=== PATIENT | male | born 1945 | race Caucasian/White ===

== ENCOUNTER 2017-02-26 11:58 | Inpatient (IN) | payer OTHER ==
[2017-02-26] MEDS ORDERED: NS 1,000 ML IV ONE (12:09)
[2017-02-26] MEDS ORDERED: FAMOTIDINE 20 MG TAB PO ONE (12:09)
[2017-02-26] MEDS ORDERED: DIAZEPAM 5 MG TAB PO ONE (12:09)
[2017-02-26] MEDS ORDERED: diphenhydrAMINE 25 MG CAP PO ONE ×2 (12:09→12:35)
[2017-02-26] MEDS ORDERED: ASPIRIN EC 325 MG TAB PO ONE ×2 (12:09→12:35)
--- NOTE | 2017-02-26 12:31 | CPEKG ---
Heart Rate: 52 RR Interval: 1154 P-R Interval: 180 QRSD Interval: 84 QT Interval: 444 QTC Interval: 413 P [place]: -8 QRS [place]: 22 T Wave [place]: 74 EKG Severity - NORMAL ECG - EKG Impression: SINUS RHYTHM Electronically Signed By: Bret Swann 26-Feb-2017 14:13:36
[2017-02-26] MEDS ORDERED: DIAZEPAM 5 MG TAB ONE (12:35)
[2017-02-26] MEDS ORDERED: LIDOCAINE 1% 300 MG/30 ML SDV ONE (12:57)
[2017-02-26 12:58] LABS: % IMMATURE GRANULYOCYTES 0.4 % (0.0-1.1); ABSOLUTE IMMATURE GRANULOCYTES 0.02 10^3/uL (0.00-0.10); ADD DIFF? NO; ADD MORPH? NO; ADD SCAN? NO; ATYPICAL LYMPHOCYTE FLAG 0 (0-99); FRAGMENT RBC FLAG 0 (0-99); HEMATOCRIT 48.4 % (40.0-51.0); HEMOGLOBIN 16.6 g/dL (13.7-17.5); LEFT SHIFT FLG 0 (0-99); LIPEMIA HEMOLYSIS FLAG 90 (0-99); MEAN CELL HEMOGLOBIN 30.5 pg (27.9-34.1); MEAN CELL HEMOGLOBIN CONCENTR. 34.3 g/dL (32.4-36.7); MEAN CELL VOLUME 88.8 fL (81.5-99.8); MEAN PLATELET VOLUME 10.2 fL (8.7-11.7); PLATELET CLUMPS FLAG 0 (0-99); PLATELET COUNT 142 10^3/uL (150-400); RED BLOOD CELL COUNT 5.45 10^6/uL (4.40-6.38); RED CELL DISTRIBUTION WIDTH 13.1 % (11.5-15.2)
[2017-02-26] MEDS ORDERED: HEPARIN 10,000 UNIT/10 ML MDV ONE (12:58)
[2017-02-26] MEDS ORDERED: fentaNYL 100 MCG/2 ML INJ ONE (12:58)
[2017-02-26] MEDS ORDERED: IOPAMIDOL (ISOVUE-370) 150 ML BTL IV ONE (12:58)
[2017-02-26] MEDS ORDERED: MIDAZOLAM 2 MG/2 ML VIAL ONE (12:58)
[2017-02-26] MEDS ORDERED: VERAPAMIL 5 MG/2 ML VIAL ONE (12:58)
[2017-02-26 13:14] LABS: INR 1.07 (0.83-1.16); PROTIME(PATIENT) 13.8 SEC (12.0-15.0)
[2017-02-26 13:15] LABS: ANION GAP 12 mEq/L (8-16); CALCIUM 10.4 mg/dL (8.5-10.4); CARBON DIOXIDE 19 mEq/l (22-31); CHLORIDE 111 mEq/L (97-110); CHOLESTEROL 209 mg/dL (140-220); CREATININE 1.2 mg/dL (0.7-1.3); GLOMERULAR FILTRATION RATE 60; GLUCOSE 87 mg/dL (70-100); HIGH DENSITY LIPOPROTEIN 38 mg/dL (40-65); LDL/HDL RATIO 4.11 RATIO (1.00-3.64); LOW DENSITY LIPOPROTEIN 156 mg/dL (80-100); NON-HIGH DENSITY LIPOPROTEIN 171 mg/dL (90-129); POTASSIUM 4.2 mEq/L (3.5-5.2); SODIUM 142 mEq/L (134-144); TRIGLYCERIDE 77 mg/dL (40-150); VERY LOW DENSITY LIPOPROTEINS 15 mg/dL (8-25)
--- NOTE | 2017-02-26 14:50 | GHP ---
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 He exerci ses a few times a week using an elliptical aed trainer. He reports that beginning in the middle of last week he began to experience episodes of discomfort while using his elliptical. Pain would start in the right side of his jaw on radiate in to the right upper arm and chest. It intensified if he con tinued exercise and was relieved fairly quickly with rest. He then began to notice that almost any physical exertion would precipitate similar symptoms. He was seen by his primary care provider. Ne s physical examination was unremarkable and his ECG demonstrated minor nonspecific abnormalities. Michell calderon was referred to our office for an exercise stress test with nuclear imaging. That study was perfo rmed earlier today. He exercised 7 minutes 45 seconds of the Hector protocol. He experienced his us ual discomfort and demonstrated inferolateral ST-segment depression up to 2 mm. The nuclear profusi on images have not been formally interpreted, but Dr. Pabon reviewed the images and called me to re lay that he has a large anterior reversible defect. His cardiac risk profile is notable for the abs ence of high blood pressure, type 2 diabetes, or a significant smoking history. He does not know ct s lipid status. His mother had atherosclerotic vascular disease late in life. PAST MEDICAL HISTORY: He has a history of pneumonia. No major ongoing medical issues. He does use hearing aids. PAST SURGICAL HISTORY: Includes tonsillectomy, surgery for a retinal detachment, and cataract surge ry. FAMILY HISTORY: Atherosclerosis in his mother in late age, as mentioned above. Otherwise noncontri butory. MEDICATIONS: His home medications consist of fluoxetine 40 mg and 20 mg on alternate days, p.r.n. o meprazole, vitamin D supplement, and fish oil. ALLERGIES: No known drug allergies. SOCIAL HISTORY: He is . He has 2 adult offspring. 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 His only tobacco exposure was occasional pipe smoking while in college. Alcohol consumption is minimal. REVIEW OF SYSTEMS: Apart from the chest discomfort that prompted this hospital encounter, a 10-poin t review was negative. PHYSICAL EXAMINATION: VITAL SIGNS: Heart rate in the 70s with sinus rhythm on the monitor. Blood pressure 130s over 70s. GENERAL: A well-developed, well-nourished male, in no acute distress. He is alert and oriented x3. HEAD AND NECK: No scleral icterus. Mucous membranes moist. Carotid pul ses 2+ without bruits. There is no JVD. CHEST: Lung ivey clear to auscultation. CARDIAC: Regu lar rate and rhythm with a normal S1 and S2. There is no murmur or gallop. ABDOMEN: Soft, nontend er, nondistended with normal bowel sounds. EXTREMITIES: 2+ pulses and no peripheral edema. An All en test on the right wrist was normal. LABORATORY STUDIES: Pending at the time of this dictation. IMPRESSION: This is a 71-year-old male who presents with new-onset exertional discomfort consistent with angina. He has a markedly abnormal nuclear stress test demonstrating an anterior reversible d efect in conjunction with ST-segment depression. PLAN: The patient is scheduled for diagnostic cardiac catheterization today. Further diagnostic an d therapeutic decisions await the outcome of that study. /[id number]/MODL
[2017-02-26] MEDS ORDERED: ONDANSETRON 4 MG/2 ML VIAL IVP PRN (15:38)
[2017-02-26] MEDS ORDERED: ONDANSETRON DISINTEGRATING 4 MG TAB PO PRN (15:38)
[2017-02-26] MEDS ORDERED: HYDROCODONE/APAP 5/325 TAB PO PRN (15:38)
[2017-02-26] MEDS ORDERED: NITROGLYCERIN 0.4 MG BTL SL PRN (15:38)
[2017-02-26] MEDS ORDERED: ATROPINE SULFATE 1 MG/10 ML SYR IVP PRN (15:38)
[2017-02-26] MEDS ORDERED: NS 1,000 ML IV SCH (15:45)
--- NOTE | 2017-02-26 15:50 | PDDXCAT ---
Diagnostic Cath Note - . Date: 02/26/17 Drilling Inspector: Demetrius Indication: other (CCS class III angina and nuclear ETT positive for chest pain , ST segment depression, and a large anterior reversible perfusion defect.) - Procedure Access: right groin (Start of procedure from the right wrist but severe innominate tortuosity precluded manipulation of catheters.) - Materials Left Heart Cath size: 6F Left Heart Cath materials: standard multipack (JL4, JR4, pigtail) - Findings-Left Heart Catheterization LM: Normal. LAD: Severe disease in the mid-LAD up to 70-80%. Principle diagonal 100% proximal with meyx-[id number] collaterals. LCX: Mild irregularities. RCA: Mild to moderate irregularities. Ramus: Ostial 50-60%. LVEF: 50% Wall motion: Mid-anterior hypokinesis. Complications: None Estimated blood loss: <50ml Closure method: Angioseal Assessment: 1) Low normal LVEF. 2) CAD as described above. Plan: Will place the patient on PCU overnight for observation and to initiate medical therapy to consist of aspirin, beta monie, and statin. Will consult CT surgery to consider bypass grafting of his complex LAD-diagonal bifurcation disease and possibly ramus intermedius.
--- NOTE | 2017-02-26 17:40 | ECHO ---
[id number] + + [id number] : : [place] [address] : : [phone] + Adult Echocardiographic Report + ----+ :Name: BASSAM العراقيRichard Date: 02/26/2017 04:12 PM : : Hospital Admission Number: [id number] Location: [facility]: :: 1945 Gender: Male : :Age: 71 yrs Race: WH : :Reason For Study: CAD : + ----+ MMode/2D Measurements \T\ Calculations IVSd: 0.52 cm LVIDd: 5.3 cm FS: 47.3 % Ao root diam: LVPWd: 0.72 cm LVIDs: 2.8 cm EDV(Teich): 3.6 cm 133.8 ml LA dimension: ESV(Teich): 3.7 cm 29.0 ml EF(Teich): 78.3 % LVLd ap4: 8.5 cm SV(MOD-sp4): EDV(MOD-sp4): 40.0 ml 69.0 ml LVLs ap4: 7.4 cm ESV(MOD-sp4): 29.0 ml EF(MOD-sp4): 58.0 % Normal Measurement Values: + + :LVIDd (3.5-5.7cm) IVSd (0.6-1.1cm) LVPWd (0.6-1.1cm) Aortic Root (2.0-3.7cm)Left Atrium (1.5-4.0cm): :LV Vol(d) (76-115ml) LV Vol(s) (29-48ml) Ejec Fraction (50-65%)PV Ricki (0.6- 1.2m/s) TV Ricki (0.4-1.0m/s) : :MV E Ricki (0.8-1.0m/s)MV A Ricki (0.3-1.0m/s)LVOT Ricki (0.7-1.2m/s) Asc Ao Ricki ( 0.9-1.8m/s) : + + Doppler Measurements \T\ Calculations MV E max ricki: 61.2 cm/sec Ao V2 max: 93.7 cm/sec MV A max ricki: 58.2 cm/sec Ao max P.5 mmHg MV E/A: 1.1 Left Ventricle The left ventricle is normal in size. There is normal left ventricular wall thickness. EF estimate is 50-55%. LV apical septal/anterior kim appear hypo/akinetic. Right Ventricle The right ventricle is normal in size and function. Atria The left atrial size is normal. Right atrial size is normal. The interatrial septum is intact with no evidence for an atrial septal defect. Mitral Valve The mitral valve is normal in structure and function. There is no evidence of mitral valve prolapse. There is no mitral valve stenosis. Tricuspid Valve Normal tricuspid valve. There is trace tricuspid regurgitation. Aortic Valve The aortic valve is trileaflet. The aortic valve opens well. There is no aortic stenosis. Trace to mild aortic regurgitation. Pulmonic Valve The pulmonic valve is not well visualized. There is no pulmonic valvular regurgitation. Great Vessels The aortic root is normal size. Pericardium/Pleural There is no pericardial effusion. Conclusion A complete two-dimensional transthoracic echocardiogram was performed (2D, M-mode, Doppler and color flow Doppler). EF estimate is 50-55%. LV apical septal/anterior kim appear hypo/akinetic. There is trace tricuspid regurgitation. Trace to mild aortic regurgitation. Final Reading Physician: Shin Wilkerson signed on 02/26/2017 05:38 PM Ordering Physician: Hernan Romo Performed By: Nathaly Palacios RDCS
[2017-02-26] MEDS: METOPROLOL TARTRATE 25 MG TAB PO SCH (21:28)
[2017-02-26] MEDS: OMEGA-3 FATTY ACIDS 1,000 MG CAP PO SCH (21:28)
[2017-02-26] MEDS ORDERED: LIDOCAINE 2% JELLY 20 ML (UROJECT) ONE ×2 (22:02→23:59)
[2017-02-27] MEDS ORDERED: OPIUM/BELLADONNA ALKALO SUPP PR PRN ×2 (01:42→02:04)
--- NOTE | 2017-02-27 07:38 | GCON ---
[f rep st] CONSULTATION DATE OF CONSULTATION: 02/27/2017 REFERRING PHYSICIAN: Jimmy Corley MD REASON FOR CONSULTATION: Urinary retention. HISTORY OF PRESENT ILLNESS: Dr. Corley has asked me to evaluate this 71-year-old male, who underw ent cardiac catheterization earlier today and has been unable to urinate. Bladder scans have shown greater than 600 mL, and attempts to pass a catheter have been unsuccessful. The patient has a prio r history of transurethral resection of the prostate with history of bladder neck contraction, treat ed in 2012. He also has history of hemorrhagic prostatitis. He is being primarily followed at [facility] by the [facility] team. He had been having no voiding problems prior to [facility] o ever the past several years. PAST MEDICAL HISTORY: Positive for hypertension. SOCIAL HISTORY: He has had cataract surgery. ALLERGIES: He has no known drug allergies. PHYSICAL EXAMINATION: GENERAL: Patient is uncomfortable with a distended abdomen. : Attempts t o pass a coude catheter were unsuccessful. PROCEDURE: Cystoscopy was then carried out. Patient has a tortuous urethra. The scope was passed into the bladder, but multiple attempts to pass catheters over guidewire were unsuccessful. Ultimat sara, a superstiff wire was passed, a 5-Surinamese open-end ureteral catheter passed over this, and a 16- Surinamese Councill catheter passed over that. Greater than 1 L of bloody urine was drained. IMPRESSION: Urinary retention with no obvious anatomic area for obstruction, but a very tortuous ur ethra. RECOMMENDATION: I would leave the Srivastava catheter in through his upcoming open-heart surgery due to the difficult catheterization. He can either followup with [facility], or with me, if he continues to have problems. /[id number]/MODL
--- NOTE | 2017-02-27 08:03 | PDCARPN ---
Cardiology Progress Note Chief Complaint: CC: admit with jaw pain with exertion Assessment/Plan: Assessment: 1. New onset exertional jaw pain 2. 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 Romo. He is feeling well this AM. He had issues with urinary retention post cath and has spencer in place that required urology consult with Dr Estes. Dr. Rai is stable. No events on tele. Reviewed/Discussed With: multidisciplinary team (Reviewed with Nursing staff and Dr Sheth) Time Spent With Patient: 15 min Objective: Vital Signs (8 Hrs) Temp Pulse Resp BP Pulse Ox 02/27/17 05:54 36.6 C 64 17 108/60 93 Intake/Output (24 Hrs) 02/26/17 02/27/17 02/28/17 05:59 05:59 05:59 Intake Total 400 Output Total 1250 Balance -850 Intake: Oral (ml) 400 Output: Urine (ml) 1250 Catheter 1250 Other: Weight 84 kg Intake Quantity Yes Sufficient Result Diagrams: 03/06/17 07:55 03/06/17 05:15 Telemetry: NSR - Physical Exam Constitutional: WDWN Eyes: PERRL Ears, Nose, Mouth, Throat: moist mucous membranes Cardiovascular: regular rate and rhythm, no murmurs, no rubs, no gallops Respiratory: clear to auscultate bilat Neurologic: AAOx3 Psychiatric: cooperative ICD10 Worksheet Patient Problems: Problems Problem Status Onset Acute blood loss anemia Acute CAD in [place] artery Acute Chronic Disease Mgmt/Transitional Care Acute S/P CABG x 3 Acute ~03/01/17
[2017-02-27] MEDS: ASPIRIN 81 MG CHEWABLE TAB PO SCH (09:02)
[2017-02-27] MEDS: OMEGA-3 FATTY ACIDS 1,000 MG CAP PO SCH ×2 (09:02→21:12)
[2017-02-27] MEDS: CHOLECALCIFEROL VIT D3 1,000 UNITS TAB PO SCH (09:02)
[2017-02-27] MEDS: FLUoxetine 20 MG CAP PO SCH (09:02)
[2017-02-27] MEDS: ATORVASTATIN CALCIUM 40 MG TAB PO SCH (09:02)
[2017-02-27] MEDS: METOPROLOL TARTRATE 25 MG TAB PO SCH ×2 (09:52→21:13)
[2017-02-28] MEDS: CHOLECALCIFEROL VIT D3 1,000 UNITS TAB PO SCH (08:53)
[2017-02-28] MEDS: ASPIRIN 81 MG CHEWABLE TAB PO SCH (08:53)
[2017-02-28] MEDS: ATORVASTATIN CALCIUM 40 MG TAB PO SCH (08:54)
[2017-02-28] MEDS: OMEGA-3 FATTY ACIDS 1,000 MG CAP PO SCH ×2 (08:54→21:02)
[2017-02-28] MEDS: FLUoxetine 20 MG CAP PO SCH (08:59)
[2017-02-28] MEDS: METOPROLOL TARTRATE 25 MG TAB PO SCH ×2 (08:59→21:02)
[2017-02-28] MEDS ORDERED: MUPIROCIN 2% 22 GM OINT NS ONE (10:10)
--- NOTE | 2017-02-28 10:14 | PDCARPN ---
Cardiology Progress Note Chief Complaint: Mr. Rai is feeling well today. Assessment/Plan: Assessment: 1. New onset exertional jaw pain 2. CAD Plan: -Plan for CABG tomorrow with Dr. Sheth -Srivastava catheter secondary to urinary retention -continue current cardiac medications 02/27/17 07:59 02/28/17 10:13 Subjective: Mr. Rai is feeling well. No chest pain or sob. Hemodynamicaly stable. No events on Tele. Reviewed/Discussed With: multidisciplinary team (Discussed with Nursing and CT surgery staff ) Objective: Vital Signs (8 Hrs) Temp Pulse Resp BP Pulse Ox 02/28/17 08:04 36.3 C 57 L 16 126/76 H 95 02/28/17 05:11 36.5 C 56 L 16 107/68 95 Intake/Output (24 Hrs) 02/27/17 02/28/17 03/01/17 05:59 05:59 05:59 Intake Total 400 850 Output Total 1250 3180 Balance -850 -2330 Intake: Oral (ml) 400 850 Output: Urine (ml) 1250 3180 Catheter 1250 3180 Other: Weight 84 kg Intake Quantity Yes Yes Sufficient Result Diagrams: 03/06/17 07:55 03/06/17 05:15 - Physical Exam Neurologic: AAOx3, CN II-XII grossly intact Psychiatric: cooperative, interactive ICD10 Worksheet Patient Problems: Problems Problem Status Onset Acute blood loss anemia Acute CAD in [place] artery Acute Chronic Disease Mgmt/Transitional Care Acute S/P CABG x 3 Acute ~03/01/17
[2017-02-28] MEDS: MUPIROCIN 2% 22 GM OINT NS SCH ×2 (11:04→21:02)
[2017-02-28] MEDS ORDERED: CHLORHEXIDINE GLUC HIBICLENS 118 ML BTL TP SCH (21:00)
[2017-03-01 01:16] LABS: HEMOGLOBIN A1C 5.4 % (4.0-6.0)
[2017-03-01] MEDS ORDERED: AMINOCAPROIC ACID 5 GM/20 ML VIAL IV ONE (06:00)
[2017-03-01] MEDS ORDERED: MANNITOL 25% 12.5 GM/50 ML VIAL IV ONE (06:00)
[2017-03-01] MEDS ORDERED: ceFAZolin 2 GM/DEXTROSE 100 ML IV ONE (06:00)
[2017-03-01] MEDS ORDERED: niCARdipine/NACL 200 ML IV SCH (06:00)
[2017-03-01] MEDS ORDERED: NOREPINEPHRINE BITARTRATE 16 MG in NS 250 ML IV ONE (06:00)
[2017-03-01] MEDS ORDERED: INSULIN REGULAR HUMAN 100 UNIT in NS 100 ML IV ONE (06:00)
[2017-03-01] MEDS ORDERED: CITRATE DEXTROSE SOLN 500 ML BAG MISC ONE (06:00)
[2017-03-01] MEDS ORDERED: SODIUM BICARBONATE 20 MEQ, LIDOCAINE 1% 10 ML in NORMOSOL-R 1,000 ML MISC ONE (06:00)
[2017-03-01] MEDS ORDERED: PHENYLEPHRINE HCL 50 MG in NS 250 ML IV ONE (06:00)
[2017-03-01] MEDS ORDERED: VERAPAMIL 5 MG, NITROGLYCERIN 2.5 MG, HEPARIN 500 UNIT, SODIUM BICARBONATE 0.2 MEQ in L... MISC ONE (06:00)
[2017-03-01] MEDS: MUPIROCIN 2% 22 GM OINT NS SCH ×2 (07:50→21:47)
[2017-03-01] MEDS: ATORVASTATIN CALCIUM 40 MG TAB PO SCH (08:01)
[2017-03-01] MEDS: ASPIRIN 81 MG CHEWABLE TAB PO SCH (08:01)
[2017-03-01] MEDS: OMEGA-3 FATTY ACIDS 1,000 MG CAP PO SCH (08:02)
[2017-03-01] MEDS: FLUoxetine 20 MG CAP PO SCH (08:02)
[2017-03-01] MEDS: CHOLECALCIFEROL VIT D3 1,000 UNITS TAB PO SCH (08:02)
[2017-03-01] MEDS: METOPROLOL TARTRATE 25 MG TAB PO SCH (08:02)
[2017-03-01] MEDS ORDERED: ALBUMIN 5% 250 ML BOTTLE IV ONE ×2 (08:08→17:43)
[2017-03-01] MEDS ORDERED: PROTAMINE SULFATE 50 MG/5 ML VIAL IVP ONE (08:08)
[2017-03-01] MEDS ORDERED: AMIODARONE HCL 150 MG/3 ML VIAL ONE (08:09)
[2017-03-01] MEDS ORDERED: NA BICARBONATE 50 MEQ/50 ML VIAL ONE (08:09)
[2017-03-01] MEDS ORDERED: CITRATE DEXTROSE SOLN 500 ML BAG ONE (08:09)
[2017-03-01] MEDS ORDERED: CALCIUM CHLORIDE 1 GM/10 ML INJ ONE (08:09)
[2017-03-01] MEDS ORDERED: DOPamine/DEXTROSE/250 ML BAG IV ONE (08:09)
[2017-03-01] MEDS ORDERED: AMINOCAPROIC ACID 5 GM/20 ML VIAL ONE (08:09)
[2017-03-01] MEDS ORDERED: niCARdipine/NACL/200 ML BAG IV ONE (08:09)
[2017-03-01] MEDS ORDERED: LIDOCAINE 2% 100 MG/5 ML SYR ONE ×2 (08:09→13:08)
[2017-03-01] MEDS ORDERED: POTASSIUM Cl (KCl) 20 MEQ/50 ML BAG IV ONE (08:09)
[2017-03-01] MEDS ORDERED: MILRINONE/DEXTROSE/100 ML BAG IV ONE (08:09)
[2017-03-01] MEDS ORDERED: HEPARIN 10,000 UNIT/10 ML MDV ONE (08:10)
[2017-03-01] MEDS ORDERED: methylPREDNISolone SOD SUCC 1 GM/8 ML VIAL ONE (08:10)
[2017-03-01] MEDS ORDERED: ADENOSINE 6 MG/2 ML VIAL ONE (08:10)
[2017-03-01] MEDS ORDERED: ceFAZolin 1 GM VIAL ONE ×2 (08:10→16:11)
[2017-03-01] MEDS ORDERED: MAGNESIUM SULFATE 1 GM/2 ML VIAL ONE (08:10)
[2017-03-01] MEDS ORDERED: LR 1,000 ML IV ONE (11:10)
[2017-03-01] MEDS ORDERED: CEFAZOLIN 2 GM/DEXTROSE/100 ML BAG IV ONE (11:22)
[2017-03-01] MEDS ORDERED: DEXMEDETOMIDINE HCL 400 MCG in NS 100 ML IV SCH (12:30)
[2017-03-01] MEDS ORDERED: PAPAVERINE HCL 60 MG/2 ML SDV ONE (12:36)
[2017-03-01] MEDS ORDERED: VERAPAMIL 5 MG/2 ML VIAL ONE (12:36)
[2017-03-01] MEDS ORDERED: MINERAL OIL 10 ML VIAL ONE (12:36)
--- NOTE | 2017-03-01 12:37 | PDHPUP ---
History & Physical Update H&P update statement: This history and physical update is based on an assessment of the patient which was completed after admission or registration (within 24 hours), but prior to the surgery/procedure. H&P changes: Urology consult, cysto and spencer for urinary retention d/t tortuous urethra
[2017-03-01] MEDS ORDERED: SCOPOLAMINE HYDROBROMIDE 1.5 MG PATCH TD ONE (12:40)
[2017-03-01] MEDS ORDERED: MIDAZOLAM 2 MG/2 ML VIAL IVP ONE (12:40)
--- NOTE | 2017-03-01 12:40 | PDANEPAE ---
ANE History of Present Illness 71 yo for cabgx2, nl LV ANE Past Medical History - Cardiovascular History Hx Hypertension: No Hx Arrhythmias: No Hx Chest Pain: No Hx Coronary Artery / Peripheral Vascular Disease: Yes Hx CHF / Valvular Disease: No Hx Palpitations: No - Pulmonary History Hx COPD: No Hx Asthma/Reactive Airway Disease: No Hx Recent Upper Respiratory Infection: No Hx Oxygen in Use at Home: No Hx Sleep Apnea: No Sleep Apnea Screening Result - Last Documented: Positive - Endocrine History Hx Diabetes: No - Chronic Pain History Chronic Pain: No ANE Review of Systems Review of systems is: negative - Exercise capacity METS (RN): 4 METS ANE Patient History - Allergies Allergies/Adverse Reactions: No Known Allergies Allergy (Unverified 02/26/17 12:08) - Home Medications Home medications: home medication list seen and reviewed Home Medications: Cholecalciferol Vit D3 [Vitamin D3 (*)] 2,000 units PO DAILY 02/26/17 [Last Taken 02/26/17] Cholecalciferol Vit D3 [Vitamin D3 (*)] 2,000 units PO EVERY OTHER DAY@21 [Last Taken 02/24/17] FLUoxetine [Prozac 20 MG (*)] 20 mg PO EVERY OTHER DAY 02/26/17 [Last Taken ] FLUoxetine [Prozac 20 MG (*)] 40 mg PO EVERY OTHER DAY 02/26/17 [Last Taken 40MG] Evergreen-3 Fatty Acids [Fish Oil 1000 mg (*)] 1,000 mg PO BID 02/26/17 [Last Taken 02/26/17 06:30] - NPO status NPO Status: no food or drink >8 hours NPO Since - Liquids (Date): 02/28/17 NPO Since - Liquids (Time): 23:00 NPO Since - Solids (Date): 02/28/17 NPO Since - Solids (Time): 18:00 - Anes Hx Anes Hx: post operative nausea and vomiting - Smoking Hx Smoking Status: Former smoker ANE Labs/Vital Signs - Labs Result Diagrams: 02/26/17 12:45 02/26/17 12:45 - Vital Signs Blood Pressure: 119/79 Heart Rate: 51 Respiratory Rate: 16 O2 Sat (%): 97 Height: 5 ft 6.93 in Weight: 80.9 kg ANE Physical Exam - Airway Mallampati Score: Class 2 Mouth exam: normal dental/mouth exam - Pulmonary Pulmonary: no respiratory distress - Cardiovascular Cardiovascular: regular rate and rhythym - ASA Status ASA Status: III ANE Anesthesia Plan Anesthesia Plan: general endotracheal anesthesia Lines/Monitors: arterial line, central line
[2017-03-01] MEDS ORDERED: PROPOFOL/EMULSION 500 MG/50 ML BOTTLE IV ONE (13:00)
[2017-03-01] MEDS ORDERED: fentaNYL 100 MCG/2 ML INJ ONE ×4 (13:00→17:51)
[2017-03-01] MEDS ORDERED: REMIFENTANIL HCL 1 MG VIAL ONE (13:00)
[2017-03-01] MEDS ORDERED: DEXAMETHASONE 4 MG/ML VIAL ONE (13:04)
[2017-03-01] MEDS ORDERED: ROCURONIUM 100 MG/10 ML VIAL ONE (13:04)
[2017-03-01] MEDS ORDERED: METOCLOPRAMIDE 10 MG/2 ML VIAL ONE (13:04)
[2017-03-01] MEDS ORDERED: MAGNESIUM SULF 2 GM/WATER 50 ML BAG IV ONE (17:15)
[2017-03-01] MEDS ORDERED: MAGNESIUM SULF 2 GM/WATER 50 ML IV ONE (17:21)
[2017-03-01] MEDS ORDERED: ACETAMINOPHEN 650 MG SUPP PR PRN (17:21)
[2017-03-01] MEDS ORDERED: POLYETHYLENE GLYCOL 3350 17 GM PKT PO PRN (17:21)
[2017-03-01] MEDS ORDERED: CEPACOL LOZENGE PO PRN (17:21)
[2017-03-01] MEDS ORDERED: MEPERIDINE 25 MG/ML SYR IVP PRN (17:21)
[2017-03-01] MEDS ORDERED: BISACODYL 10 MG SUPP PR PRN (17:21)
[2017-03-01] MEDS ORDERED: MAGNESIUM HYDROXIDE 30 ML UDCUP PO PRN (17:21)
[2017-03-01] MEDS ORDERED: LACTULOSE 20 GM/30 ML UDCUP PO PRN (17:21)
[2017-03-01] MEDS ORDERED: PANTOPRAZOLE SODIUM 40 MG in NS 100 ML IV ONE (17:21)
[2017-03-01] MEDS ORDERED: POTASSIUM Cl (KCl) 50 ML IV PRN (17:21)
[2017-03-01] MEDS ORDERED: METOCLOPRAMIDE 10 MG/2 ML VIAL IVP PRN (17:21)
[2017-03-01] MEDS ORDERED: AMIODARONE HCL 200 ML IV ONE (17:21)
[2017-03-01] MEDS ORDERED: SODIUM CL NASAL 45 ML BTL EACHNARE PRN (17:21)
[2017-03-01] MEDS ORDERED: D50W 25 GM/50 ML SYR IVP PRN (17:21)
--- NOTE | 2017-03-01 17:22 | POSTOPPROG ---
Post Op Note Date of Operation: 03/01/17 Surgeon: Hernan Sheth Sales Development Director: Adolfo Anesthesiologist: Adalberto Anesthesia: GET(General Endotracheal) Pre-op Diagnosis: ASHD Procedure: CAB 3 Barbosa-Lad, Jessica-ramus, SVG-Dg, Atriclip to ANDREW, EVH Inf/Abcess present in the surg proc area at time of surgery?: No EBL: 100-500 Drains: Other (3 blakes)
[2017-03-01] MEDS ORDERED: OXYCODONE/APAP 5/325 TAB PO PRN (17:29)
[2017-03-01] MEDS ORDERED: INSULIN REGULAR HUMAN 100 UNIT in NS 100 ML IV SCH (17:30)
[2017-03-01] MEDS ORDERED: NS 1,000 ML IV SCH (17:30)
[2017-03-01] MEDS: ALBUMIN 5% 250 ML IV PRN ×2 (17:35→18:30)
[2017-03-01] MEDS: fentaNYL 100 MCG/2 ML INJ IVP PRN ×5 (17:40→21:36)
--- NOTE | 2017-03-01 18:25 | CPEKG ---
Heart Rate: 67 RR Interval: 896 P-R Interval: 188 QRSD Interval: 96 QT Interval: 464 QTC Interval: 490 P [place]: 41 QRS [place]: 43 T Wave [place]: 79 EKG Severity - BORDERLINE ECG - EKG Impression: SINUS RHYTHM EKG Impression: BORDERLINE T ABNORMALITIES, ANT-LAT LEADS EKG Impression: BORDERLINE PROLONGED QT INTERVAL Electronically Signed By: Shen Thomas 04-Mar-2017 09:10:58
--- NOTE | 2017-03-01 18:34 | POSTANESTH ---
Post Anesthetic Evaluation Cardiovascular Status: Normal, Stable Respiratory Status: Other, See Comment Level of Consciousness/Mental Status: Moderately Sleepy Pain Control: Adequate, Prn Tx Ordered Nausea/Vomiting Control: Adequate, Prn Tx Ordered Complications Possibly Related to Anesthesia: None Noted (On vent, sedated. No apparent comp anesthesia)
[2017-03-01 19:05] LABS: CALCULATED OXYGEN SATURATION 95 % (92-95)
[2017-03-01] MEDS ORDERED: SODIUM BICARBONATE 50 MEQ/50 ML SYR IV ONE (20:15)
[2017-03-01 20:17] LABS: CALCULATED OXYGEN SATURATION 97 % (92-95); O2 CONCENTRATIION 80 % (0-100)
[2017-03-01] MEDS ORDERED: ALBUMIN 5% 250 ML IV ONE (20:30)
[2017-03-01] MEDS ORDERED: FAMOTIDINE 20 MG/NACL 50 ML IV SCH (21:00)
[2017-03-01] MEDS: CHLORHEXIDINE GLUCONATE 15 ML UDL PO SCH (21:48)
[2017-03-01 21:57] LABS: CALCULATED OXYGEN SATURATION 96 % (92-95)
[2017-03-01] MEDS: ceFAZolin 2 GM/DEXTROSE 100 ML IV SCH (22:50)
[2017-03-02] MEDS ORDERED: AMIODARONE HCL 200 ML IV SCH
[2017-03-02] MEDS: ALBUMIN 5% 250 ML IV PRN ×3 (00:59→14:04)
[2017-03-02] MEDS ORDERED: DOPamine/DEXTROSE/250 ML BAG IV ONE (01:10)
[2017-03-02 04:13] LABS: % IMMATURE GRANULYOCYTES 0.3 % (0.0-1.1); ABSOLUTE IMMATURE GRANULOCYTES 0.03 10^3/uL (0.00-0.10); ADD DIFF? NO; ADD MORPH? NO; ADD SCAN? NO; ATYPICAL LYMPHOCYTE FLAG 0 (0-99); FRAGMENT RBC FLAG 0 (0-99); HEMATOCRIT 30.9 % (40.0-51.0); HEMOGLOBIN 10.5 g/dL (13.7-17.5); LEFT SHIFT FLG 0 (0-99); LIPEMIA HEMOLYSIS FLAG 90 (0-99); MEAN CELL HEMOGLOBIN 30.6 pg (27.9-34.1); MEAN CELL VOLUME 90.1 fL (81.5-99.8); MEAN PLATELET VOLUME 10.4 fL (8.7-11.7); PLATELET CLUMPS FLAG 10 (0-99); PLATELET COUNT 95 10^3/uL (150-400); RED BLOOD CELL COUNT 3.43 10^6/uL (4.40-6.38); RED CELL DISTRIBUTION WIDTH 13.1 % (11.5-15.2)
[2017-03-02 04:34] LABS: ANION GAP 11 mEq/L (8-16); CALCIUM 9.4 mg/dL (8.5-10.4); CARBON DIOXIDE 22 mEq/l (22-31); CHLORIDE 114 mEq/L (97-110); CREATININE 1.1 mg/dL (0.7-1.3); GLOMERULAR FILTRATION RATE > 60; GLUCOSE 95 mg/dL (70-100); POTASSIUM 4.3 mEq/L (3.5-5.2); SODIUM 147 mEq/L (134-144)
--- NOTE | 2017-03-02 04:55 | GOP ---
[f rep st] OPERATIVE REPORT DATE OF OPERATION: 03/01/2017 SURGEON: Hernan Sheth DO FIRE EQUIPMENT OPERATOR: GRETA Orellana. ANESTHESIOLOGIST: Bailey Bose MD. PREOPERATIVE DIAGNOSIS: Unstable angina with arteriosclerotic heart disease. POSTOPERATIVE DIAGNOSIS: Unstable angina with arteriosclerotic heart disease. PROCEDURE PERFORMED: 1. Coronary bypass grafting x3, with 2 arterial conduits with the left internal mammary artery to t he proximal LAD, right internal mammary artery to the ramus branch via the transverse sinus, and sap henous vein graft to the diagonal. 2. Endoscopic vein harvest. 3. AtriClip the left atrial appendage. FINDINGS: Patient was noted to have normal LV function, was noted to have 2 vessel disease. He was consented for surgery, brought to the operating room, intubated, and monitoring lines were placed. DESCRIPTION OF PROCEDURE: The sternotomy was performed and both mammaries were harvested. The vein was harvested from the thigh and lower leg endoscopically. He was heparinized and cannulated. Car diopulmonary bypass was begun. A cardioplegic arrest was obtained with antegrade cardioplegia, topi mary anne hypothermia and systemic cooling. Initially, the ramus was brought through a lateral pericardia l incision 2 cm anterior to the phrenic nerve beneath the aorta and anastomosed end-to-side into a 2 .5 mm good quality ramus branch. This was tacked to the epicardium. We then grafted the vein graft to a 2 mm diagonal, which was then brought off the ascending aorta. We then grafted the mammary to the proximal LAD just after takeoff of the diagonal. It was a 2.5 mm diffusely diseased vessel. I t was tacked to the epicardium. The cross-clamp was removed with suction and ascending aortic vent. An AtriClip 35 mm was placed across the base of the left atrial appendage without difficulty. The patient was then rewarmed and weaned from bypass. The heparin was reversed with protamine. The ca nnula was removed and oversewn. Two ventricular pacing wires, 2 pleural and 1 mediastinal drains we re placed. The thymic fat and pericardium were closed. Chest was closed in standard fashion. The patient was returned to ICU in stable condition. /[id number]/MODL
[2017-03-02] MEDS: ceFAZolin 2 GM/DEXTROSE 100 ML IV SCH ×3 (05:26→21:34)
[2017-03-02] MEDS: fentaNYL 100 MCG/2 ML INJ IVP PRN ×3 (06:00→11:44)
[2017-03-02] MEDS: HEPARIN 5,000 UNIT/0.5 ML SYR SC SCH ×3 (06:23→21:35)
[2017-03-02 06:34] LABS: CALCULATED OXYGEN SATURATION 96 % (92-95)
--- NOTE | 2017-03-02 07:44 | SOAPPROG ---
SOAP Progress Note Assessment/Plan: POD #1 CABGx3 HUGHES-LAD, KIA-Ramus, SVG-Diag), AtriClip ANDREW, EVH left leg Unstable angina/severe 2VD s/p CABGx3 - Dopamine off this AM - BB/ASA/Stain when appropriate - Amiodarone for AF prophylaxis - Heparin SQ/SCDs for DVT prophylaxis - CTs to bulb suction, AL if BP stable, FC to remain d/t urologic issues - Transfer to PCU later today if BP stable Acute blood loss anemia - Stable without the need for blood product transfusions h/o TURP/bladder neck contraction/hemorrhagic prostatitis with acute urinary retention after LHC s/p complicated FC placement by urology - FC to remain for now - will defer to urology for plan Subjective: c/o incisional pain with difficulty taking deep breaths Objective: Vital Signs Temp Pulse Resp BP Pulse Ox 36.9 C 89 17 113/58 L 93 03/02/17 04:00 03/02/17 07:00 03/02/17 07:00 03/02/17 07:00 03/02/17 07:00 Laboratory Results 03/02/17 03:55 03/02/17 03:55 03/01/17 03/02/17 03/03/17 05:59 05:59 05:59 Intake Total 1200 1911.9 Output Total 3200 2054 Balance -1999 -142.1 PT 13.8 SEC (12.0-15.0) 02/26/17 12:45 INR 1.07 (0.83-1.16) 02/26/17 12:45 Physical Exam - Physical Exam General Appearance: WD/WN, alert, no apparent distress EENT: No scleral icterus (R), No scleral icterus (L) Neck: normal inspection Respiratory: No respiratory distress Cardiac/Chest: regular rate, rhythm Abdomen: non-tender, soft, No distended Skin: normal color, warm/dry Extremities: No pedal edema Neuro/Psych: no motor/sensory deficits, alert, normal mood/affect, oriented x 3 ICD10 Worksheet Patient Problems: Problems Problem Status Onset Acute blood loss anemia Acute CAD in [place] artery Acute S/P CABG x 3 Acute ~03/01/17
[2017-03-02] MEDS: CHLORHEXIDINE GLUCONATE 15 ML UDL PO SCH ×2 (09:42→21:50)
[2017-03-02] MEDS: FLUoxetine 20 MG CAP PO SCH (11:40)
[2017-03-02] MEDS: ASPIRIN 81 MG CHEWABLE TAB PO SCH (11:40)
[2017-03-02] MEDS: PANTOPRAZOLE SODIUM 40 MG TAB PO SCH (11:40)
[2017-03-02] MEDS: MUPIROCIN 2% 22 GM OINT NS SCH ×2 (11:40→21:38)
[2017-03-02] MEDS ORDERED: PATCH REMOVAL 1 EA PATCH TD ONE (12:40)
[2017-03-02 14:41] LABS: POTASSIUM 4.3 mEq/L (3.5-5.2)
[2017-03-02] MEDS ORDERED: traMADol 50 MG TAB PO PRN (14:45)
--- NOTE | 2017-03-02 17:21 | CPEKG ---
Heart Rate: 72 RR Interval: 833 P-R Interval: 164 QRSD Interval: 96 QT Interval: 404 QTC Interval: 443 P [place]: 56 QRS [place]: 23 T Wave [place]: 59 EKG Severity - ABNORMAL ECG - EKG Impression: SINUS RHYTHM EKG Impression: ST ELEVATION, PROBABLE LATERAL INJURY EKG Impression: BORDERLINE ST ELEVATION, INFERIOR LEADS Electronically Signed By: Piter Pabon 04-Mar-2017 17:44:42
[2017-03-02 18:08] LABS: POTASSIUM 4.2 mEq/L (3.5-5.2)
[2017-03-02] MEDS: IBUPROFEN 600 MG TAB PO SCH ×2 (19:29→21:39)
[2017-03-02] MEDS: AMIODARONE HCL 200 MG TAB PO SCH (21:34)
[2017-03-02] MEDS: SENNOSIDES/DOCUSATE SODIUM TAB PO SCH (21:34)
[2017-03-03] MEDS: ceFAZolin 2 GM/DEXTROSE 100 ML IV SCH (06:19)
[2017-03-03] MEDS: IBUPROFEN 600 MG TAB PO SCH ×3 (06:19→22:28)
[2017-03-03] MEDS: HEPARIN 5,000 UNIT/0.5 ML SYR SC SCH ×3 (06:19→22:28)
[2017-03-03 07:25] LABS: % IMMATURE GRANULYOCYTES 0.4 % (0.0-1.1); ABSOLUTE IMMATURE GRANULOCYTES 0.06 10^3/uL (0.00-0.10); ADD DIFF? NO; ADD MORPH? NO; ADD SCAN? NO; ATYPICAL LYMPHOCYTE FLAG 10 (0-99); FRAGMENT RBC FLAG 0 (0-99); HEMATOCRIT 29.2 % (40.0-51.0); HEMOGLOBIN 9.5 g/dL (13.7-17.5); LEFT SHIFT FLG 0 (0-99); LIPEMIA HEMOLYSIS FLAG 80 (0-99); MEAN CELL HEMOGLOBIN 30.5 pg (27.9-34.1); MEAN CELL HEMOGLOBIN CONCENTR. 32.5 g/dL (32.4-36.7); MEAN CELL VOLUME 93.9 fL (81.5-99.8); MEAN PLATELET VOLUME 11.1 fL (8.7-11.7); PLATELET CLUMPS FLAG 0 (0-99); PLATELET COUNT 107 10^3/uL (150-400); RED BLOOD CELL COUNT 3.11 10^6/uL (4.40-6.38); RED CELL DISTRIBUTION WIDTH 13.7 % (11.5-15.2)
[2017-03-03 07:36] LABS: ANION GAP 10 mEq/L (8-16); CALCIUM 9.8 mg/dL (8.5-10.4); CARBON DIOXIDE 22 mEq/l (22-31); CHLORIDE 109 mEq/L (97-110); CREATININE 1.2 mg/dL (0.7-1.3); GLOMERULAR FILTRATION RATE 60; GLUCOSE 110 mg/dL (70-100); POTASSIUM 4.1 mEq/L (3.5-5.2); SODIUM 141 mEq/L (134-144)
--- NOTE | 2017-03-03 07:57 | SOAPPROG ---
SOAP Progress Note Assessment/Plan: POD #2 CABGx3 (HUGHES-LAD, KIA-Ramus, SVG-Diag), AtriClip ANDREW, EVH left leg Unstable angina/severe 2VD s/p CABGx3 - BB/ASA/Stain when appropriate - Amiodarone for AF prophylaxis - Heparin SQ/SCDs for DVT prophylaxis - CT #1 to be dc'd this AM, other 2 CTs to bulb suction, FC to remain d/t urologic issues, PW to be removed Acute blood loss anemia - Stable without the need for blood product transfusions h/o TURP/bladder neck contraction/hemorrhagic prostatitis with acute urinary retention after LHC s/p complicated FC placement by urology - FC to remain for now - will defer to urology for plan - Dr. Franklyn cuevas for re -assessment 03/03/17 09:54 Subjective: Had some upper abdomen pain yesterday. No CP/jaw pain/SOB. Objective: Vital Signs Temp Pulse Resp BP Pulse Ox 36.8 C 91 20 108/60 91 L 03/03/17 07:34 03/03/17 07:34 03/03/17 07:34 03/03/17 07:34 03/03/17 07:34 Laboratory Results 03/03/17 06:25 03/03/17 06:25 03/02/17 03/03/17 03/04/17 05:59 05:59 05:59 Intake Total 1911.9 1962.4 Output Total 2054 1810 Balance -142.1 152.4 PT 13.8 SEC (12.0-15.0) 02/26/17 12:45 INR 1.07 (0.83-1.16) 02/26/17 12:45 Physical Exam - Physical Exam General Appearance: WD/WN, alert, no apparent distress EENT: No scleral icterus (R), No scleral icterus (L) Neck: normal inspection Respiratory: No respiratory distress Cardiac/Chest: regular rate, rhythm Abdomen: non-tender, soft, No distended Skin: normal color, warm/dry Extremities: No pedal edema Neuro/Psych: no motor/sensory deficits, alert, normal mood/affect, oriented x 3 ICD10 Worksheet Patient Problems: Problems Problem Status Onset Acute blood loss anemia Acute CAD in [place] artery Acute S/P CABG x 3 Acute ~03/01/17
[2017-03-03] MEDS: HYDROCODONE/APAP 5/325 TAB PO PRN ×2 (08:03→12:56)
[2017-03-03] MEDS: SENNOSIDES/DOCUSATE SODIUM TAB PO SCH ×2 (08:04→20:35)
[2017-03-03] MEDS: ACETAMINOPHEN 325 MG TAB PO PRN ×2 (08:04→12:57)
[2017-03-03] MEDS: FLUoxetine 20 MG CAP PO SCH (08:04)
[2017-03-03] MEDS: AMIODARONE HCL 200 MG TAB PO SCH ×2 (08:04→22:28)
[2017-03-03] MEDS: PANTOPRAZOLE SODIUM 40 MG TAB PO SCH (08:04)
[2017-03-03] MEDS: ASPIRIN 81 MG CHEWABLE TAB PO SCH (08:05)
[2017-03-03] MEDS: CHLORHEXIDINE GLUCONATE 15 ML UDL PO SCH (08:09)
--- NOTE | 2017-03-03 08:59 | CPEKG ---
Heart Rate: 79 RR Interval: 759 P-R Interval: 156 QRSD Interval: 104 QT Interval: 376 QTC Interval: 432 P [place]: 49 QRS [place]: 25 T Wave [place]: 53 EKG Severity - ABNORMAL ECG - EKG Impression: SINUS RHYTHM EKG Impression: ST ELEVATION SUGGESTS PERICARDITIS Electronically Signed By: Piter Pabon 04-Mar-2017 17:43:40
[2017-03-03] MEDS: CHOLECALCIFEROL VIT D3 1,000 UNITS TAB PO SCH (09:22)
[2017-03-03] MEDS: TAMSULOSIN HCL 0.4 MG CAP PO SCH (10:40)
--- NOTE | 2017-03-03 11:09 | ECHO ---
[id number] + + [id number] : : [place] [address] : : [phone] + + Adult Echocardiographic Report + ----+ :Name: Lana العراقيroderick Date: 03/03/2017 10:21 AM : : Hospital Admission Number: [id number] Location: 222: :: 1945 Gender: Male Height: 66 in : :Age: 71 yrs Race: WH Weight: 186 lb : :Reason For Study: Eval LV Fx : : BSA: 1.9 meters2 : :History: Post CABG, Abnormal EKG : + ----+ MMode/2D Measurements \T\ Calculations IVSd: 0.85 cm LVIDd: 4.6 cm FS: 43.2 % LVPWd: 1.1 cm LVIDs: 2.6 cm EDV(Teich): 98.0 ml ESV(Teich): 25.1 ml EF(Teich): 74.4 % Normal Measurement Values: + + :LVIDd (3.5-5.7cm) IVSd (0.6-1.1cm) LVPWd (0.6-1.1cm) Aortic Root (2.0-3.7cm)Left Atrium (1.5-4.0cm): :LV Vol(d) (76-115ml) LV Vol(s) (29-48ml) Ejec Fraction (50-65%)PV Ricki (0.6- 1.2m/s) TV Ricki (0.4-1.0m/s) : :MV E Ricki (0.8-1.0m/s)MV A Ricki (0.3-1.0m/s)LVOT Ricki (0.7-1.2m/s) Asc Ao Ricki ( 0.9-1.8m/s) : + + Left Ventricle The left ventricular ejection fraction is normal. Ejection Fraction = 60-65 %. There is normal apical wall motion. Septal motion is consistent with post-operative state. Conclusion This is a limited echo to evaluate apical wall motion post CABG. The left ventricular ejection fraction is normal. There is normal apical wall motion. Ejection Fraction = 60-65%%. Final Reading Physician: Marc Wilkins electronically signed on 03/03/2017 11:08 AM Ordering Physician: Tee Lugo Performed By: Germain Beck, PRIYANKACS
[2017-03-03] MEDS ORDERED: NS 500 ML IV SCH (15:30)
[2017-03-03] MEDS ORDERED: IBUPROFEN 800 MG TAB PO SCH (18:44)
[2017-03-03] MEDS ORDERED: NS 500 ML IV ONE (19:00)
[2017-03-03] MEDS ORDERED: NS 1,000 ML IV SCH (20:45)
[2017-03-03 21:23] LABS: ANION GAP 6 mEq/L (8-16); CALCIUM 9.2 mg/dL (8.5-10.4); CARBON DIOXIDE 22 mEq/l (22-31); CHLORIDE 107 mEq/L (97-110); CREATININE 1.2 mg/dL (0.7-1.3); GLOMERULAR FILTRATION RATE 60; GLUCOSE 110 mg/dL (70-100); POTASSIUM 3.7 mEq/L (3.5-5.2); SODIUM 135 mEq/L (134-144)
[2017-03-03] MEDS ORDERED: POTASSIUM CL 20 MEQ TAB PO ONE (21:25)
[2017-03-04] MEDS: HEPARIN 5,000 UNIT/0.5 ML SYR SC SCH ×3 (06:19→21:16)
[2017-03-04] MEDS: IBUPROFEN 600 MG TAB PO SCH ×3 (06:19→21:15)
--- NOTE | 2017-03-04 07:03 | SOAPPROG ---
SOAP Progress Note Assessment/Plan: POD #3 CABGx3 (HUGHES-LAD, IKA-Ramus, SVG-Diag), AtriClip ANDREW, EVH left leg Unstable angina/severe 2VD s/p CABGx3 - BB/ASA/Stain when appropriate - Amiodarone for AF prophylaxis - Heparin SQ/SCDs for DVT prophylaxis - CTx2 on bulb suction Acute blood loss anemia - Stable without the need for blood product transfusions h/o TURP/bladder neck contraction/hemorrhagic prostatitis with acute urinary retention after LHC s/p complicated FC placement by urology - FC out without issues voiding, monitor Subjective: Denies CP/SOB. Voiding urine without difficulty. Objective: Vital Signs Temp Pulse Resp BP Pulse Ox 36.8 C 78 20 108/64 96 03/04/17 04:00 03/04/17 04:00 03/04/17 04:00 03/04/17 04:00 03/04/17 04:00 Laboratory Results 03/03/17 06:25 03/03/17 20:50 03/03/17 03/04/17 03/05/17 05:59 05:59 05:59 Intake Total 1962.4 4156 Output Total 1810 1260 150 Balance 152.4 2896 -150 PT 13.8 SEC (12.0-15.0) 02/26/17 12:45 INR 1.07 (0.83-1.16) 02/26/17 12:45 Physical Exam - Physical Exam General Appearance: WD/WN, alert, no apparent distress EENT: No scleral icterus (R), No scleral icterus (L) Neck: normal inspection Respiratory: No respiratory distress Cardiac/Chest: regular rate, rhythm Abdomen: non-tender, soft, No distended Skin: normal color, warm/dry Extremities: pedal edema ( ) Neuro/Psych: no motor/sensory deficits, alert, normal mood/affect, oriented x 3 ICD10 Worksheet Patient Problems: Problems Problem Status Onset Acute blood loss anemia Acute CAD in [place] artery Acute Chronic Disease Mgmt/Transitional Care Acute S/P CABG x 3 Acute ~03/01/17
[2017-03-04] MEDS ORDERED: FUROSEMIDE 40 MG/4 ML VIAL IVP ONE (07:18)
[2017-03-04] MEDS ORDERED: POTASSIUM CL 20 MEQ TAB PO ONE (07:18)
[2017-03-04] MEDS: PANTOPRAZOLE SODIUM 40 MG TAB PO SCH (08:48)
[2017-03-04] MEDS: AMIODARONE HCL 200 MG TAB PO SCH ×2 (08:48→21:16)
[2017-03-04] MEDS: SENNOSIDES/DOCUSATE SODIUM TAB PO SCH ×2 (08:48→21:16)
[2017-03-04] MEDS: CHOLECALCIFEROL VIT D3 1,000 UNITS TAB PO SCH (08:49)
[2017-03-04] MEDS: ASPIRIN 81 MG CHEWABLE TAB PO SCH (08:50)
[2017-03-04] MEDS: TAMSULOSIN HCL 0.4 MG CAP PO SCH (08:50)
[2017-03-04] MEDS: FLUoxetine 20 MG CAP PO SCH (08:59)
[2017-03-04] MEDS: HYDROCODONE/APAP 5/325 TAB PO PRN (09:00)
[2017-03-04] MEDS: ATORVASTATIN CALCIUM 40 MG TAB PO SCH (09:02)
[2017-03-04] MEDS: OMEGA-3 FATTY ACIDS 1,000 MG CAP PO SCH ×2 (09:02→21:16)
--- NOTE | 2017-03-04 09:05 | CPEKG ---
Heart Rate: 97 RR Interval: 619 P-R Interval: 152 QRSD Interval: 80 QT Interval: 304 QTC Interval: 386 P [place]: 48 QRS [place]: 21 T Wave [place]: 73 EKG Severity - ABNORMAL ECG - EKG Impression: SINUS RHYTHM EKG Impression: BORDERLINE T WAVE ABNORMALITIES EKG Impression: ST ELEVATION SUGGESTS PERICARDITIS Electronically Signed By: Piter Pabon 04-Mar-2017 17:42:41
[2017-03-05] MEDS: IBUPROFEN 600 MG TAB PO SCH (05:40)
[2017-03-05] MEDS: HEPARIN 5,000 UNIT/0.5 ML SYR SC SCH ×3 (05:40→22:10)
--- NOTE | 2017-03-05 06:36 | SOAPPROG ---
SOAP Progress Note Assessment/Plan: Assessment: POD#4 CABGx3 (HUGHES-LAD, KIA-Ramus, SVG-Diag), AtriClip ANDREW, EVH left leg Unstable angina/severe 2VD s/p CABGx3 - BB/ASA/Statin as appropriate - Amiodarone for AF prophylaxis - Heparin SQ/SCDs for DVT prophylaxis - CTx2 on bulb suction Acute blood loss anemia - Stable without the need for blood product transfusions h/o TURP/bladder neck contraction/hemorrhagic prostatitis with acute urinary retention after LHC s/p complicated FC placement by urology - FC out without issues voiding, monitor Plan: Switch to oral diuresis. Metoprolol 12.5 mg BID with conservative hold parameters. Consider removal chest tubes later today. Cont inc activity and pulmonary toilet. Hold bowel regimen. Cont inc activity as tolerated. Dispo - Anticipate home next 1-2 days. 03/05/17 06:36 Subjective: Doing ok now. Up all night with diarrhea - "I shouldn't of taken that stool softener". Not much appetite. Is able to get OOB and chair on his own. Objective: Vital Signs Temp Pulse Resp BP Pulse Ox 36.1 C 78 18 133/73 H 97 03/05/17 04:00 03/05/17 04:00 03/05/17 04:00 03/05/17 04:00 03/05/17 04:00 Laboratory Results 03/03/17 06:25 03/03/17 20:50 03/04/17 03/05/17 03/06/17 05:59 05:59 05:59 Intake Total 4156 1570 Output Total 1260 2920 Balance 2896 -1350 PT 13.8 SEC (12.0-15.0) 02/26/17 12:45 INR 1.07 (0.83-1.16) 02/26/17 12:45 Stable HR and rhythm. Upward creep in BP. Excellent sats on 3 Lpm O2, likely can wean to 1-2 Lpm. Improving fluid balance. +4 kg overall. CTOP nearing removal criteria. Physical Exam - Physical Exam General Appearance: alert, no apparent distress Respiratory: decreased breath sounds (bases), other (blakes x 2 to bulb suction , serosang drainage) Cardiac/Chest: regular rate, rhythm, other (Sternum grossly stable. Sternotomy CDI.) Abdomen: soft Skin: warm/dry Extremities: swelling (1+ gen), other (LLE venotomies x 2 CDI. Venot tract soft , dissipating ecchymosis) ICD10 Worksheet Patient Problems: Problems Problem Status Onset Acute blood loss anemia Acute CAD in [place] artery Acute Chronic Disease Mgmt/Transitional Care Acute S/P CABG x 3 Acute ~03/01/17
[2017-03-05] MEDS: ASPIRIN 81 MG CHEWABLE TAB PO SCH (08:43)
[2017-03-05] MEDS: ATORVASTATIN CALCIUM 40 MG TAB PO SCH (08:43)
[2017-03-05] MEDS: CHOLECALCIFEROL VIT D3 1,000 UNITS TAB PO SCH (08:43)
[2017-03-05] MEDS: NAPROXEN SODIUM 220 MG TAB PO SCH ×2 (08:43→22:07)
[2017-03-05] MEDS: AMIODARONE HCL 200 MG TAB PO SCH ×2 (08:45→22:07)
[2017-03-05] MEDS: METOPROLOL TARTRATE 25 MG TAB PO SCH ×2 (08:46→22:09)
[2017-03-05] MEDS: PANTOPRAZOLE SODIUM 40 MG TAB PO SCH (08:46)
[2017-03-05] MEDS: POTASSIUM CL 20 MEQ TAB PO SCH (08:47)
[2017-03-05] MEDS: TAMSULOSIN HCL 0.4 MG CAP PO SCH (08:47)
[2017-03-05] MEDS: FLUoxetine 20 MG CAP PO SCH (08:48)
[2017-03-05] MEDS: OMEGA-3 FATTY ACIDS 1,000 MG CAP PO SCH ×2 (08:48→22:09)
[2017-03-05] MEDS ORDERED: FUROSEMIDE 40 MG TAB PO SCH (09:00)
[2017-03-05] MEDS ORDERED: SENNOSIDES/DOCUSATE SODIUM TAB PO PRN (09:00)
[2017-03-06 05:26] LABS: HEMATOCRIT 22.8 % (40.0-51.0); HEMOGLOBIN 7.8 g/dL (13.7-17.5); MEAN CELL HEMOGLOBIN 31.3 pg (27.9-34.1); MEAN CELL HEMOGLOBIN CONCENTR. 34.2 g/dL (32.4-36.7); MEAN CELL VOLUME 91.6 fL (81.5-99.8); RED BLOOD CELL COUNT 2.49 10^6/uL (4.40-6.38); RED CELL DISTRIBUTION WIDTH 13.2 % (11.5-15.2)
[2017-03-06 05:47] LABS: ANION GAP 6 mEq/L (8-16); CALCIUM 9.3 mg/dL (8.5-10.4); CARBON DIOXIDE 24 mEq/l (22-31); CHLORIDE 104 mEq/L (97-110); CREATININE 1.1 mg/dL (0.7-1.3); GLOMERULAR FILTRATION RATE > 60; GLUCOSE 85 mg/dL (70-100); POTASSIUM 3.5 mEq/L (3.5-5.2); SODIUM 134 mEq/L (134-144)
--- NOTE | 2017-03-06 07:50 | SOAPPROG ---
SOAP Progress Note Assessment/Plan: Assessment: POD#5 CABGx3 (HUGHES-LAD, KIA-Ramus, SVG-Diag), AtriClip ANDREW, EVH left leg Unstable angina/severe 2VD s/p CABGx3 - ASA/Statin started. Insufficient BP for BB - Amiodarone for AF prophylaxis - Heparin SQ/SCDs for DVT prophylaxis - Tubes and wires out Acute blood loss anemia - Downward drift without evidence active bleeding. Mildly symptomatic ( generalized fatigue but able to get OOB independently and walk a full lap around the [place]). Will adjust meds and observe. h/o TURP/bladder neck contraction/hemorrhagic prostatitis with acute urinary retention after LHC s/p complicated FC placement by urology - FC out without issues voiding, monitor Plan: Stop NSAID and SQ hep. Repeat CBC. Consider transfusion if H/H consistent or lower. Replete K. Hold metoprolol. Dispo - Home this afternoon vs tomorrow if medically stable. 03/06/17 07:46 Subjective: Slept well. IS capacity doubled since tubes out. No dizziness OOB. Stools firming up. No abd discomfort. Not opposed to going home if cleared by Dr Sheth. Objective: Vital Signs Temp Pulse Resp BP Pulse Ox 36.8 C 69 14 91/56 L 94 03/06/17 04:00 03/06/17 04:00 03/06/17 04:00 03/06/17 04:00 03/06/17 04:00 Laboratory Results 03/06/17 05:15 03/06/17 05:15 03/05/17 03/06/17 03/07/17 05:59 05:59 05:59 Intake Total 1570 1130 Output Total 2920 1060 Balance -1350 70 PT 13.8 SEC (12.0-15.0) 02/26/17 12:45 INR 1.07 (0.83-1.16) 02/26/17 12:45 HR and rhythm stable. SBP 90s-110s. Unable to wean off O2. Balanced I/Os. Approaching baseline wt. H/H unexpectedly low. Plt count stable. Physical Exam - Physical Exam General Appearance: alert, no apparent distress Respiratory: lungs clear Cardiac/Chest: regular rate, rhythm, other (Sternum stable. Sternotomy CDI.) Abdomen: non-tender, soft Skin: normal color Extremities: swelling (trace dependent), other (LLE venots CDI. Venot tract no obvious hematoma.) ICD10 Worksheet Patient Problems: Problems Problem Status Onset Chronic Disease Mgmt/Transitional Care Acute Acute blood loss anemia Acute S/P CABG x 3 Acute ~03/01/17 CAD in [place] artery Acute
[2017-03-06] MEDS ORDERED: POTASSIUM CL 20 MEQ TAB PO ONE (08:00)
[2017-03-06 08:14] LABS: HEMATOCRIT 23.6 % (40.0-51.0); HEMOGLOBIN 7.9 g/dL (13.7-17.5); MEAN CELL HEMOGLOBIN 30.7 pg (27.9-34.1); MEAN CELL HEMOGLOBIN CONCENTR. 33.5 g/dL (32.4-36.7); MEAN CELL VOLUME 91.8 fL (81.5-99.8); RED BLOOD CELL COUNT 2.57 10^6/uL (4.40-6.38); RED CELL DISTRIBUTION WIDTH 13.2 % (11.5-15.2)
[2017-03-06] MEDS: AMIODARONE HCL 200 MG TAB PO SCH (09:36)
[2017-03-06] MEDS: PANTOPRAZOLE SODIUM 40 MG TAB PO SCH (09:36)
[2017-03-06] MEDS: CHOLECALCIFEROL VIT D3 1,000 UNITS TAB PO SCH (09:37)
[2017-03-06] MEDS: OMEGA-3 FATTY ACIDS 1,000 MG CAP PO SCH (09:37)
[2017-03-06] MEDS: ASPIRIN 81 MG CHEWABLE TAB PO SCH (09:38)
[2017-03-06] MEDS: FLUoxetine 20 MG CAP PO SCH (09:38)
[2017-03-06] MEDS: ATORVASTATIN CALCIUM 40 MG TAB PO SCH (09:38)
[2017-03-06] MEDS: TAMSULOSIN HCL 0.4 MG CAP PO SCH (09:41)
[2017-03-06] MEDS: POTASSIUM CL 20 MEQ TAB PO SCH (09:41)
[2017-03-06] MEDS ORDERED: FUROSEMIDE 40 MG/4 ML VIAL IVP ONE (10:00)
[2017-03-06 10:40] VITALS: BP 104/52; PULSE 75; RESP 18; TEMP 98.4
[2017-03-06 12:28] VITALS: O2SAT 78
--- NOTE | 2017-03-06 15:30 | PDDCSUM ---
Discharge Summary Discharge Summary: DATE OF ADMISSION: 02/26/17 DATE OF DISCHARGE: 03/06/17 DISPOSITION: Home, self-care PRINCIPAL ADMISSION DIAGNOSIS: Exertional angina PRINCIPAL DISCHARGE DIAGNOSES: 1. Severe multivessel coronary artery disease 2. Ischemic cardiomyopathy 3. Carotid atherosclerosis 4. Uncontrolled dyslipidemia 5. Urinary retention attributed to a tortuous urethra 6. Status post coronary artery bypass grafting x 3 7. Status post prophylactic AtriClip ligation of the left atrial appendage 8. 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 Found to have complex left sided stenoses, a regional wall abnormality with low normal LVEF, and referred for surgical revascularization. No valvular dysfunction or prohibitive neurologic risk. Urology consulted prior to CABG for urinary retention with distended bladder and inability to pass a spencer catheter. Cystoscopy negative for anatomic obstruction but remarkable for a tortuous urethra requiring catheter passage over a superstiff wire. PERTINENT PAST MEDICAL HISTORY: Dyslipidemia, depression, hemorrhagic prostatitis, remote urinary retention due to bladder neck contraction after TURP (followed by [facility] urologist), hearing loss MEDICATIONS ON ADMISSION: Vit D3 1,000 units alternating with 2.000 units every other day, Prozac 20 mg alternating with 40 mg every other day, Fish Oil 1,000 mg BID ALLERGIES/SENSITIVITIES: NKDA CONSULTANTS: Urology ([facility]), CV surgery ([facility]) PROCEDURES/IMAGIN/28 (Demetrius): Left heart catheterization with selective coronary angiography and left ventriculogram. Access converted from rt radial artery to rt femoral artery due to innominate tortuosity. 02/26 (Shree): Transthoracic echocardiogram 02/26 Carotid Ultrasound 02/27 ([facility]): Cystoscopy with placement of a 16 Fr [place] tip catheter 03/01 ([facility]): Coronary artery bypass grafting x 3 (HUGHES-LAD, IKA-RI, SV-D1). Takedown bilateral internal mammary arteries. Open vein harvest left lower leg converted to endoscopic vein harvest left thigh for more uniform caliber vein. Prophylactic AtriClip ligation of the left atrial appendage. 03/03 ([facility]): Limited transthoracic echocardiogram ABBREVIATED HOSPITAL COURSE BY ACTIVE PROBLEM LIST: 1. Sx severe CAD - Revascularized with 2 arterial grafts. Stable postop course. AF prophylaxis with amiodarone as insufficient BP for BB. No ectopy whatsoever and amio discontinued at discharge. Secondary prevention with ASA and statin. 2. Ischemic cardiomyopathy - Normalized LVEF by postop echo. Mild fluid overload actively diuresed. 3. Acute expected blood loss anemia - Downward drift without evidence active bleeding. Well tolerated. VTE prophylaxis and NSAID stopped. Started on a 2 wk course of iron supplementation. Surveillance as outpatient. 4. Urinary retention - Empirically started on Flomax prior to spencer removal. No voiding issues or further retention. Follow up with [place] urologist planned. DISCHARGE CLINICAL INFORMATION: Sternum grossly stable. Sternotomy and LLE venotomies CDI, sutured, +Dermabond. HR 60s. SBP 90s-100s. SpO2 78% RA, correcting to > 92% on 3 Lpm O2. Wt 2.9 kg above admission at 80.9 kilos. WBC 5.3, Hgb 7.9, HCT 23.6, Plt 126, Na 134, K 3.5, Cr 1.1 Admission lipids: TC 209, LDL 156, HDL 38, TG 77 DISCHARGE MEDICATIONS: As on admission with the following NEW prescriptions: 1. Atorvastatin 40 mg daily 2. Flomax 0.4 mg daily 3. Dyazide 37.5/25 one tab daily until back to baseline weight and no swelling 4. Ferrous sulfate 325 mg daily x 2 weeks 5. Tramadol 50 mg q 6-8 hrs prn incisional discomfort 6. Oxygen @ 3 Lpm continuously or as directed by SpO2 FOLLOW UP APPOINTMENTS: 1. CV surgery: with Dr Sheth at [facility] on 03/09. Office to call with appointment time. 2. Cardiology: with Dr Romo at [facility] within 4-6 weeks. Appointment to be established during surgical visit. 3. Urology: at [facility] within 4-6 weeks, or sooner prn any urologic concerns. FOLLOW UP TESTING: CBC and CXR prior to surgical appointment.
[2017-03-06] MEDS ORDERED: FERROUS SULFATE 325 MG TAB PO SCH (21:00)
[2017-03-07] MEDS ORDERED: TRIAMTERENE/HCTZ 37.5/25 1 EACH CAP PO SCH (09:00)
== END 2017-03-06 14:24 | disposition home or self-care (01) | DRG 234 ==
LOC: FCATH 11:58 → F2W 15:39 → OBSVTOIN 02-27 12:36 → F2N 03-01 11:33 → F2W 03-02 16:05
PROVIDERS: ADMIT Internal Medicine Interventional Cardiology; ATTEND Thoracic Surgery (Cardiothoracic Vascular Surgery)
DX: I25.110 Atherosclerotic heart disease of native coronary artery with unstable angina pectoris (principal); D62 Acute posthemorrhagic anemia; R33.9 Retention of urine, unspecified
CPT/HCPCS: 82947-QW; 92526-GN; 92610-GN; 97116-GP; 97161-GP; 97166-GO; 97530-GO; 97530-GP; 97535-GO; C1760; C1769; G8978-GP-CI; G8978-GP-CK; G8979-GP-CI; G8980-GP-CI; G8987-GO-CK; G8988-GO-CI; G8996-GN-CH; G8997-GN-CH; G8998-GN-CH; J0153; J0282; J0690; J1100; J1265; J1644; J1815; J1940; J2001; J2150; J2250; J2260; J2370; J2405; J2440; J2704; J2720; J2765; J2930; J3010; J7060; P9041; Q9967

== ENCOUNTER → 2017-02-26 | Outpatient (CLI) | payer OTHER | LOC: BHFA 08:30 | PROVIDERS: ATTEND Internal Medicine Cardiovascular Disease | DX: R68.84 Jaw pain (principal) | CPT/HCPCS: 78452; 93017; A9500 ==

== ENCOUNTER → 2017-03-09 | Outpatient (CLI) | payer OTHER | LOC: FIMAGING 08:31 | PROVIDERS: ATTEND Thoracic Surgery (Cardiothoracic Vascular Surgery) | DX: Z09 Encounter for follow-up examination after completed treatment for conditions other than malignant neoplasm (principal); J90 Pleural effusion, not elsewhere classified; J98.11 Atelectasis; Z98.890 Other specified postprocedural states ==

== ENCOUNTER → 2017-03-10 | Outpatient (CLI) | payer OTHER | LOC: FIMAGING 11:51 | PROVIDERS: ATTEND Thoracic Surgery (Cardiothoracic Vascular Surgery) | DX: R22.41 Localized swelling, mass and lump, right lower limb (principal); Z95.1 Presence of aortocoronary bypass graft ==

== ENCOUNTER → 2017-03-15 | Outpatient (CLI) | payer OTHER | LOC: FIMAGING 12:44 | PROVIDERS: ATTEND Thoracic Surgery (Cardiothoracic Vascular Surgery) | DX: Z09 Encounter for follow-up examination after completed treatment for conditions other than malignant neoplasm (principal); J90 Pleural effusion, not elsewhere classified; J98.11 Atelectasis; Z95.1 Presence of aortocoronary bypass graft ==

== ENCOUNTER 2017-03-23 12:13 | Inpatient (IN) | payer OTHER ==
[2017-03-23] MEDS ORDERED: ACETAMINOPHEN 500 MG TAB PO ONE (13:04)
--- NOTE | 2017-03-23 13:36 | EDPHY ---
H & P Time Seen by Provider: 03/23/17 13:16 HPI/ROS: CHIEF COMPLAINT: Fever and chills HISTORY OF PRESENT ILLNESS: 71-year-old man had cardiac bypass grafting on March 01. Of note during his catheterization report 3 days prior that trouble getting a Srivastava catheter in to home with urinary retention. He was recovering well until 3 days ago when he says "I just crashed". At that time he felt very weak and shaky and stop taking his metoprolol. He developed a dry cough but just did not have any energy including not even enough energy to brush his teeth. Over the next 3 days he developed cloudy urine and some mucopurulent discharge from his urethra. Associated with left testicular swelling and fever and chills. Symptoms moderate. Not better worse with anything. REVIEW OF SYSTEMS: Eye: no change in vision ENT: no sore throat Cardiac: no chest pain or syncope Pulmonary: Dry cough but not short of breath. Abdomen: no vomiting, diarrhea, abdominal pain Musculoskeletal: no back pain Skin: no rash Neuro: no headache Constitutional: Symptomatic fever and chills : HPI A comprehensive 10 point review of systems is otherwise negative aside from elements mentioned in the history of present illness. PAST MEDICAL HISTORY: Includes bypass grafting as noted above, TURP, tonsillectomy, depression, retinal detachment, cataract surgery. Social history: , here with spouse. General Appearance: Alert and conversant, cooperative. Eyes: No scleral icterus. ENT, Mouth: Slightly dry mucous membranes. Respiratory: Normal respiratory effort, breath sounds equal, lungs are clear to auscultation. Cardiovascular: Regular rate and rhythm. Tachycardic. Gastrointestinal: Abdomen is soft and non tender. Male shows swollen left testicle. Neurological: Alert and oriented x3. Normally conversant. Face symmetric, normal movement and sensation in all extremities. Skin: Warm and dry, no rashes. Musculoskeletal: No peripheral edema and no joint swelling. Psychiatric: Not agitated. Emergency Department course/MDM: Urine dip positive for infection. He does have SIRS criteria. Will need to be admitted for urosepsis. Normal saline IV 2 L. Does not have severe sepsis. Ceftriaxone 1 g IV. 1538: Discussed with [facility] urology regarding ultrasound. [facility] requested by the patient. Requested CT abdomen pelvis and will review ultrasound. Will consult on whether his hydrocele is an abscess that needs to be drained. Smoking Status: Never smoked Constitutional: Initial Vital Signs Temperature (C) 39.1 C H 03/23/17 12:34 Heart Rate 110 H 03/23/17 12:34 Respiratory Rate 18 03/23/17 12:34 Blood Pressure 119/59 L 03/23/17 12:34 O2 Sat (%) 97 03/23/17 12:34 O2 Delivery Mode Room Air O2 (L/minute) 2 Allergies/Adverse Reactions: No Known Allergies Allergy (Unverified 02/26/17 12:08) Home Medications: Medication Instructions Recorded Cholecalciferol Vit D3 [Vitamin D3 2,000 units PO DAILY 02/26/17 (*)] FLUoxetine [Prozac 20 MG (*)] 20 mg PO Q2D 02/26/17 FLUoxetine [Prozac 20 MG (*)] 40 mg PO Q2D 02/26/17 [place]-3 Fatty Acids [Fish Oil 1000 1,000 mg PO BID 02/26/17 mg (*)] Aspirin [Aspirin 81mg (*)] 81 mg PO DAILY #0 tab.chew 03/06/17 Atorvastatin Calcium [Lipitor 40 40 mg PO DAILY #30 tab 03/06/17 mg (*)] Medical Decision Making - Diagnostics EKG Interpretation: 12-lead EKG interpreted by me; official reading is in trace master. My interpretation is sinus rhythm rate 79 no ischemic changes. Imaging Results: Imaging Impressions Chest X-Ray 03/23/17 13:33 Impression: 1. Minimal bilateral pleural effusions. 2. Patchy bilateral lower lobe atelectasis versus pneumonia. Testicular Ultrasound 03/23/17 13:34 Impression: 1. Left epididymoorchitis. 2. Complex moderate-sized left hydrocele; superinfection is not excluded. Urologic consultation is suggested. 3. There is no evidence of a testicular mass or torsion. Findings were discussed with RINA THOMPSON MD at 14:35, on 03/23/2017. Differential Diagnosis: Differential for fever considered including but not limited to pneumonia, postop infection, orchitis or epididymitis, UTI or pyelonephritis. Consult/Admit Bed Type: [facility] for [place] [address], [facility] for [place] [address] - Data Points Laboratory Results: Laboratory Results 03/23/17 13:18 03/23/17 13:18 03/23/17 03/23/17 03/23/17 13:40 13:18 13:18 WBC RBC Hgb Hct MCV MCH MCHC RDW Plt Count MPV Neut % (Auto) Lymph % (Auto) Mobile % (Auto) Eos % (Auto) Baso % (Auto) Nucleat RBC Rel Count Absolute Neuts (auto) Absolute Lymphs (auto) Absolute Monos (auto) Absolute Eos (auto) Absolute Basos (auto) Absolute Nucleated RBC Immature Gran % Seg Neutrophils % Band Neutrophils % Lymphocytes % Monocytes % Immature Gran # Absolute Seg Neuts Absolute Band Neuts Absolute Lymphocytes Absolute Monocytes Platelet Estimate Polychromasia Microcytic Cells Elliptocytes Smear Review By PT INR APTT VBG Lactic Acid 0.8 mmol/L mmol/L (0.7-2.1) Sodium 135 mEq/L mEq/L (134-144) Potassium 3.9 mEq/L mEq/L (3.5-5.2) Chloride 102 mEq/L mEq/L (97-110) Carbon Dioxide 19 mEq/l L mEq/l (22-31) Anion Gap 14 mEq/L mEq/L (8-16) BUN 22 mg/dL mg/dL (7-23) Creatinine 1.3 mg/dL mg/dL (0.7-1.3) Estimated GFR 54 Glucose 112 mg/dL H mg/dL (70-100) Calcium 10.1 mg/dL mg/dL (8.5-10.4) Total Bilirubin 1.5 mg/dL H mg/dL (0.1-1.4) Urine Color YELLOW Urine Appearance MODERATELY TURBID Urine pH 6.0 (5.0-7.5) Ur Specific [place] 1.017 (1.002-1.030) Urine Protein 2+ H (NEGATIVE) Urine Ketones NEGATIVE (NEGATIVE) Urine Blood 2+ H (NEGATIVE) Urine Nitrate POSITIVE H (NEGATIVE) Urine Bilirubin NEGATIVE (NEGATIVE) Urine Urobilinogen 2.0 EU H EU (0.2-1.0) Ur Leukocyte Esterase 3+ H (NEGATIVE) Urine RBC 15-25 /hpf H /hpf (0-3) Urine WBC 50-182 /hpf H /hpf (0-3) Ur Epithelial Cells NONE SEEN /lpf /lpf (NONE-1+) Urine Bacteria 2+ /hpf H /hpf (NONE SEEN) Urine Mucus 1+ /lpf /lpf (NONE-1+) Urine Glucose NEGATIVE (NEGATIVE) 03/23/17 03/23/17 03/23/17 13:18 13:18 13:18 WBC 17.74 10^3/uL H 10^3/uL (3.80-9.50) RBC 3.34 10^6/uL L 10^6/uL (4.40-6.38) Hgb 10.0 g/dL L g/dL (13.7-17.5) Hct 30.9 % L % (40.0-51.0) MCV 92.5 fL fL (81.5-99.8) MCH 29.9 pg pg (27.9-34.1) MCHC 32.4 g/dL g/dL (32.4-36.7) RDW 13.2 % % (11.5-15.2) Plt Count 225 10^3/uL 10^3/uL (150-400) MPV 9.9 fL fL (8.7-11.7) Neut % (Auto) Not Reported Lymph % (Auto) Not Reported [place] % (Auto) Not Reported Eos % (Auto) Not Reported Baso % (Auto) Not Reported Nucleat RBC Rel Count 0.0 % % (0.0-0.2) Absolute Neuts (auto) Not Reported Absolute Lymphs (auto) Not Reported Absolute Monos (auto) Not Reported Absolute Eos (auto) Not Reported Absolute Basos (auto) Not Reported Absolute Nucleated RBC 0.00 10^3/uL 10^3/uL (0-0.01) Immature Gran % Not Reported Seg Neutrophils % 78 % % Band Neutrophils % 2 % % Lymphocytes % 8 % % Monocytes % 12 % % Immature Gran # Not Reported Absolute Seg Neuts 13.84 10^/uL H 10^/uL (1.70-6.50) Absolute Band Neuts 0.35 10^3/uL 10^3/uL (0.00-0.70) Absolute Lymphocytes 1.42 10^3/uL 10^3/uL (1.00-3.00) Absolute Monocytes 2.13 10^3/uL H 10^3/uL (0.30-0.80) Platelet Estimate ADEQUATE (ADEQ) Polychromasia 1+ H Microcytic Cells 1+ H Elliptocytes 1+ H Smear Review By Pending PT 15.5 SEC H SEC (12.0-15.0) INR 1.23 H (0.83-1.16) APTT 29.2 SEC SEC (23.0-38.0) VBG Lactic Acid 1.3 mmol/L mmol/L (0.7-2.1) Sodium Potassium Chloride Carbon Dioxide Anion Gap BUN Creatinine Estimated GFR Glucose Calcium Total Bilirubin Urine Color Urine Appearance Urine pH Ur Specific [place] Urine Protein Urine Ketones Urine Blood Urine Nitrate Urine Bilirubin Urine Urobilinogen Ur Leukocyte Esterase Urine RBC Urine WBC Ur Epithelial Cells Urine Bacteria Urine Mucus Urine Glucose Medications Given: Discontinued Medications Acetaminophen (Tylenol) 1,000 mg PO EDNOW ONE Stop: 03/23/17 13:05 Last Admin: 03/23/17 13:06 Dose: 1,000 mg Ceftriaxone Sodium/Dextrose (Rocephin 1 Gm (Premix)) 50 mls @ 100 mls/hr IV EDNOW ONE PRN Reason: Protocol Stop: 03/23/17 14:11 Last Admin: 03/23/17 14:10 Dose: 50 mls Sodium Chloride (Ns) 1,000 mls @ 0 mls/hr IV EDNOW ONE; Wide Open PRN Reason: Protocol Stop: 03/23/17 13:43 Last Admin: 03/23/17 13:45 Dose: 1,000 mls Sodium Chloride (Ns) 1,000 mls @ 0 mls/hr IV EDNOW ONE; Wide Open PRN Reason: Protocol Stop: 03/23/17 13:43 Last Admin: 03/23/17 14:09 Dose: 1,000 mls Departure - Dep[facility] Clinical Impression: Urinary tract infection Qualifiers: Urinary tract infection type: acute pyelonephritis Qualified Code(s): N10 - Acute pyelonephritis Condition: Serious
[2017-03-23 13:42] LABS: ADD DIFF? YES; ADD MORPH? NO; ADD SCAN? NO; ATYPICAL LYMPHOCYTE FLAG 0 (0-99); FRAGMENT RBC FLAG 30 (0-99); HEMATOCRIT 30.9 % (40.0-51.0); LEFT SHIFT FLG 30 (0-99); LIPEMIA HEMOLYSIS FLAG 80 (0-99); MEAN CELL HEMOGLOBIN 29.9 pg (27.9-34.1); MEAN CELL HEMOGLOBIN CONCENTR. 32.4 g/dL (32.4-36.7); MEAN CELL VOLUME 92.5 fL (81.5-99.8); MEAN PLATELET VOLUME 9.9 fL (8.7-11.7); PLATELET CLUMPS FLAG 0 (0-99); PLATELET COUNT 225 10^3/uL (150-400); RED BLOOD CELL COUNT 3.34 10^6/uL (4.40-6.38); RED CELL DISTRIBUTION WIDTH 13.2 % (11.5-15.2)
[2017-03-23] MEDS ORDERED: NS 1,000 ML IV ONE ×2 (13:42)
--- NOTE | 2017-03-23 13:47 | CPEKG ---
Heart Rate: 79 RR Interval: 759 P-R Interval: 160 QRSD Interval: 80 QT Interval: 380 QTC Interval: 436 P [place]: 66 QRS [place]: 28 T Wave [place]: 112 EKG Severity - NORMAL ECG - EKG Impression: SINUS RHYTHM Electronically Signed By: Juliano Riley 23-Mar-2017 14:17:11
[2017-03-23 13:57] LABS: BILIRUBIN,TOTAL 1.5 mg/dL (0.1-1.4); CALCIUM 10.1 mg/dL (8.5-10.4); CARBON DIOXIDE 19 mEq/l (22-31); CHLORIDE 102 mEq/L (97-110); CREATININE 1.3 mg/dL (0.7-1.3); GLOMERULAR FILTRATION RATE 54; GLUCOSE 112 mg/dL (70-100); SODIUM 135 mEq/L (134-144)
[2017-03-23 14:03] LABS: APTT 29.2 SEC (23.0-38.0); INR 1.23 (0.83-1.16); PROTIME(PATIENT) 15.5 SEC (12.0-15.0)
[2017-03-23 14:09] LABS: COLOR YELLOW; LEUKOCYTE ESTERASE,URINE 3+ (NEGATIVE); NITRITE,URINE POSITIVE (NEGATIVE)
[2017-03-23 14:19] LABS: PLATELET ESTIMATE ADEQUATE (ADEQ); POLYCHROMASIA 1+
[2017-03-23 14:20] LABS: ANION GAP 14 mEq/L (8-16); BACTERIA 2+ /hpf (NONE SEEN); ELLIPTOCYTES 1+; MICROCYTES 1+; MUCUS 1+ /lpf (NONE-1+); POTASSIUM 3.9 mEq/L (3.5-5.2); RBC,URINE 15-25 /hpf (0-3); WBC,URINE 50-182 /hpf (0-3)
[2017-03-23] MEDS ORDERED: HYDROCODONE/APAP 5/325 TAB PO PRN (14:25)
[2017-03-23] MEDS ORDERED: ONDANSETRON 4 MG/2 ML VIAL IVP PRN (14:25)
[2017-03-23] MEDS ORDERED: ONDANSETRON DISINTEGRATING 4 MG TAB PO PRN (14:25)
[2017-03-23] MEDS ORDERED: LORazepam 0.5 MG TAB PO PRN (14:25)
[2017-03-23] MEDS ORDERED: TEMAZEPAM 15 MG CAP PO PRN (14:25)
[2017-03-23] MEDS ORDERED: D5W 1/2 NS 1,000 ML IV SCH (14:30)
[2017-03-23] MEDS ORDERED: IOPAMIDOL (ISOVUE-300) 100 ML BTL ONE ×2 (16:25→16:31)
[2017-03-23] MEDS: PANTOPRAZOLE SODIUM 40 MG TAB PO SCH (18:43)
--- NOTE | 2017-03-23 19:29 | GHP ---
[f rep st] HISTORY AND PHYSICAL DATE OF ADMISSION: 03/23/2017 CHIEF COMPLAINT: Testicular swelling and fever. 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 He had coronary artery bypass grafting x3 at the beginning of March. He said that he was doing wel l for about 2 weeks after the surgery, but then started to feel more tired, and weaker. Two days pr ior to admission, he started to feel much worse, noted some pain and swelling in his left testicle a nd some discharge when urinating. He tried to contact his urologist at the [facility] but was unable to get an appointment. He came into the emergency department for evaluation. He denies any vomiting or diarrhea. He denies any palpitations or chest pain. He has had occasiona l cough that has been dry. He did have a Srivastava catheter placed by Dr. Estes prior to his CABG surge ry that was removed a few days after his surgery. It was fairly difficult to place, according to hi s report and Dr. Estes's consult report, but he denies any retention or urinary symptoms afterwards. He denies any previous history of prostatitis or urinary tract infection. He denies any chest pain or shortness of breath. He has noticed a little bit of increased swelling in his right lower extremity, which he has associated with status post grafting leg. He has been se en Dr. Sheth postoperatively and was recently released back to the care of Dr. Romo, his PCP. PRIMARY UROLOGIST: Dr. Unger and Dr. Carrasquillo, but he has not seen them in a few years. Dr. Estes s aw him at his last hospitalization. PRIMARY CARE PROVIDER: Dr. Genao in [place]. PAST MEDICAL HISTORY: Coronary artery disease, status post CABG x3, prophylactic AtriClip ligation of the left atrial appendage, history of ischemic cardiomyopathy, atherosclerosis and hyperlipidemia , history of urinary retention with a torturous urethra, status post Srivastava placement about 3 weeks a go. Anemia secondary to blood loss. Depression. 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 He occasionally smoke d a pipe previously. Denies any alcohol consumption. MEDICATIONS: Vitamin D 2000 units daily; fluoxetine 20 mg, alternating with 40 mg daily; omega-3 ac ids; aspirin 81 mg; Lipitor 40 mg. ALLERGIES: No known drug allergies. PAST SURGICAL HISTORY: Tonsillectomy, retinal detachment surgery, cataract surgery, 3-vessel CABG. REVIEW OF SYSTEMS: A 10-point review of system was done and negative, except as noted above. PHYSICAL EXAMINATION: VITAL SIGNS: Blood pressure is 103/49, heart rate 77, respiratory rate of 20 , 95% on room air. Temperature is 98.1, currently. T-max was 102.4 at noon while in the emergency department today. At that time, his heart rate was also 110. GENERAL: He is a very pleasant, elde rly, older-appearing gentleman in no apparent distress. HEENT: Normocephalic, atraumatic. Extraoc ular movements are intact. Oropharynx is moist. NECK: Supple. No lymphadenopathy, thyromegaly, b ruit or JVD noted. CARDIOVASCULAR: Regular rhythm, without murmur. CHEST: He has a midline dixon otomy scar with some scabbing, but no surrounding erythema. LUNGS: Clear to auscultation bilateral ly. ABDOMEN: Soft, normoactive bowel sounds, nontender, nondistended. No hepatosplenomegaly appre ciated. SKIN: CHRISTINA hose in place bilaterally. Trace edema noted in bilateral lower extremities. D orsal pedal pulses are 2+ bilaterally. : Circumcised male. Left testicle is markedly enlarged, but without significant erythema, very tender to palpation. LABORATORY DATA: Urine shows 2+ protein, 2+ blood, positive nitrite, 3+ leukocyte esterase, 15-25 r ed blood cells, 50-182 white blood cells, 2+ bacteria. Chemistry: Sodium 135, potassium 3.9, chlor kamron of 102. CO2 is 19, BUN of 22, creatinine 1.3. Glucose 112, calcium 10.1. Bilirubin is 1.5. L actic acid is 0.8. INR is 1.23. White blood cell count is 17.74, hemoglobin 10, hematocrit 30.9 (d ischarge hemoglobin was 9.7 earlier this month). Chest x-ray shows sequela of previous sternotomy a nd CABG, minimal bilateral pleural effusions with some patchy opacities. Images were personally rev iewed by me and agree with the clinical impression by Radiology. EKG shows normal sinus rhythm with a heart rate of 79, normal axis, some flipped T's in anterior otto ds, with evidence of left atrial enlargement. No significant T-waves and no noted ST changes. EKG was personally reviewed by me. CT abdomen has been ordered, but pending. Testicular ultrasound pinky wed left epididymal orchitis, a moderately-sized left hydrocele. ASSESSMENT/PLAN: 1. Febrile urinary tract infection with sepsis, evidenced by tachycardia and fever. He was given a dose of Rocephin in the emergency department, along with fluid IV hydration. He was admitted to e floor for further IV fluids, antibiotics and evaluation. Dr. Lantigua, Urology, has been consulted by the emergency department and also contacted by me to evaluate him. CT is pending at this time of dictation. 2. Coronary artery disease, status post coronary artery bypass grafting x3, recently. Had been rec uperating as expected and well from his surgery. He is going to be monitored on telemetry, and his routine home medications will all be continued. Of note, he had recently stopped metoprolol because he felt that it was increasing his depression and fatigue. This may need to be restarted, but for now, will continue to hold given his low blood pressure secondary to sepsis. 3. Depression. Continue with home dose of SSRI. 4. Primary care provider, Dr. Marc Genao, in [place]. Code status confirmed with him that he wo uld request full code status at this time. He does have a Living Will, which has been given to [facility] previously, per his report. 5. Deep vein thrombosis prophylaxis. He is at high risk given his recent cardiac history. He is o n aspirin at home. Will hold any pharmacological anticoagulation for the moment in case surgical in tervention is needed. Should revisit pharmacological prophylaxis. 6. Disposition: Anticipate greater than 2 midnights due to sepsis and possible surgical interventi on. /[id number]/MODL
[2017-03-24 05:13] LABS: % IMMATURE GRANULYOCYTES 0.8 % (0.0-1.1); ABSOLUTE IMMATURE GRANULOCYTES 0.07 10^3/uL (0.00-0.10); ADD DIFF? NO; ADD MORPH? NO; ADD SCAN? NO; ATYPICAL LYMPHOCYTE FLAG 0 (0-99); FRAGMENT RBC FLAG 0 (0-99); HEMATOCRIT 27.7 % (40.0-51.0); HEMOGLOBIN 8.8 g/dL (13.7-17.5); LEFT SHIFT FLG 0 (0-99); LIPEMIA HEMOLYSIS FLAG 80 (0-99); MEAN CELL HEMOGLOBIN 29.9 pg (27.9-34.1); MEAN CELL HEMOGLOBIN CONCENTR. 31.8 g/dL (32.4-36.7); MEAN CELL VOLUME 94.2 fL (81.5-99.8); PLATELET CLUMPS FLAG 20 (0-99); PLATELET COUNT 153 10^3/uL (150-400); RED BLOOD CELL COUNT 2.94 10^6/uL (4.40-6.38); RED CELL DISTRIBUTION WIDTH 13.4 % (11.5-15.2)
[2017-03-24 05:29] LABS: ANION GAP 9 mEq/L (8-16); CALCIUM 9.5 mg/dL (8.5-10.4); CARBON DIOXIDE 19 mEq/l (22-31); CHLORIDE 108 mEq/L (97-110); CREATININE 1.2 mg/dL (0.7-1.3); GLOMERULAR FILTRATION RATE 60; GLUCOSE 99 mg/dL (70-100); POTASSIUM 3.8 mEq/L (3.5-5.2); SODIUM 136 mEq/L (134-144)
[2017-03-24] MEDS: PANTOPRAZOLE SODIUM 40 MG TAB PO SCH (08:55)
[2017-03-24] MEDS: CHOLECALCIFEROL VIT D3 1,000 UNITS TAB PO SCH (08:56)
[2017-03-24] MEDS: ASPIRIN 81 MG CHEWABLE TAB PO SCH (08:58)
[2017-03-24] MEDS ORDERED: ATORVASTATIN CALCIUM 40 MG TAB PO SCH ×2 (09:00→21:00)
[2017-03-24] MEDS ORDERED: FLUoxetine 20 MG CAP PO SCH (09:00)
--- NOTE | 2017-03-24 13:22 | GCON ---
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 Approximately 1 week ago, he began to feel more fatigued, weaker, and then several days later, noticed the pain and swelling, which began 1 day ago. He has historically seen Dr. Segovia and Dr. Christiansen over at [facility], but was unable to get an appointment and came to the emergency room. Significantly, he had a coronary artery bypass 3 weeks ago, performed by Dr. Sheth. He does have a urology history, including BPH, for which he underwent a reduction of his prostate in approximately 2011. Reports no significant difficulty urinating since then. Reportedly did have some trouble having a catheter placed for his CABG procedure, on-call urology, Dr. Estes, was consulted, who came in to place the catheter. Denies a history of epididymitis or UTIs in the past. PAST MEDICAL HISTORY: Significant for BPH, coronary artery disease, status post CABG x3, prophylactic atrial clip ligation of left atrial appendage. History of ischemic cardiomyopathy, atherosclerosis, hyperlipidemia, history of urinary retention with torturous urethra following the CABG surgery. Anemia, depression. 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 History of occasional pipe smoking historically, denies alcohol consumption. MEDICATIONS: Vitamin D, fluoxetine, omega-3, aspirin, Lipitor. ALLERGIES: No known drug allergies. REVIEW OF SYSTEMS: A 10-point review of systems negative, except as mentioned in HPI. PHYSICAL EXAM: VITAL SIGNS: Blood pressure 116/56, heart rate 83, respirations 20, O2 93, temperature 37.1. GENERAL: This is a somewhat pale gentleman, well nourished, well developed, no acute distress. HEENT: Normocephalic, atraumatic. Extraocular movement intact. NECK: Supple. No lymphadenopathy. Trachea midline. RESPIRATORY: No accessory respiratory muscle use. CARDIAC: Regular rate and rhythm. No obvious JVD. No lower extremity edema at time of exam. GI: Abdomen soft, nondistended, nontender to palpation. No hepatosplenomegaly. Regular bowel sounds. : No CVA tenderness. Normal phallus. Testicle normal to palpation on the right. Left sided testicular swelling with mildly tender and firm left epididymis, consistent with epididymitis. LYMPHADENOPATHY: No obvious cervical or groin lymphadenopathy palpated. INTEGUMENT: As mentioned, patient was somewhat pale , no obvious rashes or lesions. NEURO: Patient was alert and oriented. Affect appropriate to situation. MUSCULOSKELETAL: Patient was supine while examined, but able to move upper extremities without difficulty. LABS: His white blood cell count is currently 8.81, hemoglobin 8.8, hematocrit 27.7, platelets 153. His chemistry: Sodium 136, potassium 3.8, chloride 108, carbon dioxide 19, anion gap 9, BUN 18, creatinine 1.2. Glucose 99, calcium 9.5. Urinalysis was suggestive of infection. Urine and blood cultures are pending report. Patient did have a CT scan of his abdomen and pelvis, which showed an enlarged prostate, measuring 7 x 7 cm, bladder wall thickening. No obvious kidney stones. No obvious kidney masses. One external iliac lymph node measuring 2.3 x 1 cm, left inguinal hernia, small not palpated on exam. Testicular ultrasound was reviewed and shows normal right testicle, right epididymis, right varicocele. Left-sided hydrocele with a few septations. Normal left testicle, hyperemic and enlarged left epididymis. ASSESSMENT: Left epididymitis. PLAN: Recommend the patient be continued on antibiotics, which are showing laboratory and clinical improvement in patient. In addition, discussed the importance of having his scrotum propped up, and decreased swelling in the testicle. Recommend patient follow up with either our office or one of his other urologist, to ensure he is continuing to progress as expected after he is discharged from the hospital. He will determine which office he would prefer to see. Please let us know if we can be of any further assistance with this patient. /[id number]/MODL MTDD
--- NOTE | 2017-03-24 15:58 | HOSPPROG ---
Hospitalist Progress Note Assessment/Plan: Orchitis with gram-negative nessa growing in urine * Continue Levaquin * White blood cell count improving * Possibly discharge tomorrow once sensitivities are back * Follow up with Urology * history of recent CABG * No issues * anemia secondary to blood loss from CABG most likely Subjective: Feeling better. Still with significant pain in swollen scrotum Objective: Vital Signs Temp Pulse Resp BP Pulse Ox 36.9 C 70 23 H 105/53 L 92 03/24/17 12:36 03/24/17 12:36 03/24/17 12:36 03/24/17 12:36 03/24/17 12:36 Laboratory Results 03/24/17 04:30 03/24/17 04:30 03/23/17 03/24/17 03/25/17 05:59 05:59 05:59 Intake Total 4026 Balance 4026 PT 15.5 SEC (12.0-15.0) H 03/23/17 13:18 INR 1.23 (0.83-1.16) H 03/23/17 13:18 - Physical Exam Constitutional: no apparent distress, appears nourished, not in pain Eyes: anicteric sclera, EOMI Cardiovascular: regular rate and rhythym, no murmur, rub, or gallop Respiratory: no respiratory distress Genitourinary: other (Swollen scrotum with testicle tenderness) Skin: warm Neurologic: AAOx3 Psychiatric: interacting appropriately, not anxious, not encephalopathic, thought process linear ICD10 Worksheet Patient Problems: Problems Problem Status Onset Urinary tract infection Acute Acute blood loss anemia Acute CAD in [place] artery Acute Chronic Disease Mgmt/Transitional Care Acute S/P CABG x 3 Acute ~03/01/17
[2017-03-24] MEDS: ACETAMINOPHEN 325 MG TAB PO PRN (18:43)
[2017-03-25 08:30] VITALS: RESP 16
[2017-03-25] MEDS ORDERED: FLUoxetine 20 MG CAP PO SCH (09:00)
[2017-03-25] MEDS: PANTOPRAZOLE SODIUM 40 MG TAB PO SCH (09:41)
[2017-03-25] MEDS: CHOLECALCIFEROL VIT D3 1,000 UNITS TAB PO SCH (09:41)
[2017-03-25] MEDS: ASPIRIN 81 MG CHEWABLE TAB PO SCH (09:41)
[2017-03-25] MEDS: ACETAMINOPHEN 325 MG TAB PO PRN (09:54)
--- NOTE | 2017-03-25 11:10 | GDS ---
[f rep st] DISCHARGE SUMMARY DISCHARGE DIAGNOSES: 1. Epididymitis. 2. Recent coronary artery bypass graft. HISTORY: This 71-year-old male presented with testicular pain and fever. HOSPITAL COURSE: The patient was admitted. He was treated with IV ceftriaxone and transitioned ove r to oral Levaquin. Urology came and saw the patient, and agreed with antibiotics, and will follow up outpatient. He did have a very difficult Srivastava placement. Prior to his CABG surgery. He did gr ow out E. coli, which was pansensitive. He will be treated with 7 more days of Levaquin, which will be approaching a 10 day course. /[id number]/MODL
[2017-03-25 11:16] VITALS: BP 106/65; PULSE 73; TEMP 97.6; O2SAT 100
== END 2017-03-25 14:44 | disposition home or self-care (01) | DRG 728 ==
LOC: F3E 16:14
PROVIDERS: ADMIT Family Medicine; ATTEND Internal Medicine
DX: N45.1 Epididymitis (principal); B96.20 Unspecified Escherichia coli [E. coli] as the cause of diseases classified elsewhere; N43.2 Other hydrocele; I86.1 Scrotal varices; Z95.1 Presence of aortocoronary bypass graft; I25.10 Atherosclerotic heart disease of native coronary artery without angina pectoris; I25.5 Ischemic cardiomyopathy; E78.5 Hyperlipidemia, unspecified; D62 Acute posthemorrhagic anemia; F32.9 Major depressive disorder, single episode, unspecified
CPT/HCPCS: 96365; J0696; Q9967

== ENCOUNTER → 2017-03-30 | Outpatient (CLI) | payer OTHER | LOC: BHLMT 14:00 | PROVIDERS: ATTEND Internal Medicine Interventional Cardiology | DX: R07.9 Chest pain, unspecified (principal) | CPT/HCPCS: 78452; 93017; A9500 ==

== ENCOUNTER 2018-12-29 08:36 | Inpatient (IN) | payer OTHER ==
[2018-12-29] MEDS ORDERED: LIDOCAINE 1% 2 ML INJ ID PRN (09:04)
[2018-12-29] MEDS ORDERED: LR 1,000 ML IV ONE (09:04)
--- NOTE | 2018-12-29 09:13 | PDANEPAE ---
ANE History of Present Illness BPH here for TURP ANE Past Medical History - Cardiovascular History Hx Hypertension: No Hx Arrhythmias: No Hx Chest Pain: No Hx Coronary Artery / Peripheral Vascular Disease: Yes Hx CHF / Valvular Disease: No Hx Palpitations: No - Pulmonary History Hx COPD: No Hx Asthma/Reactive Airway Disease: No Hx Recent Upper Respiratory Infection: No Hx Oxygen in Use at Home: No Hx Sleep Apnea: No Sleep Apnea Screening Result - Last Documented: Negative - Neurologic History Hx Cerebrovascular Accident: No Hx Seizures: No Hx Dementia: No - Endocrine History Hx Diabetes: No - Renal History Hx Renal Disorders: Yes Renal History Comment: BPH - Liver History Hx Hepatic Disorders: No - Neurological & Psychiatric Hx Hx Neurological and Psychiatric Disorders: Yes Neurological / Psychiatric History Comment: DEPRESSION - Cancer History Hx Cancer: No - Congenital Disorder History Hx Congenital Disorders: No - GI History Hx Gastrointestinal Disorders: Yes Gastrointestinal History Comment: MILD SYMPTOMS OF REFLUX. SMALL HIATAL HERNIA - Chronic Pain History Chronic Pain: No - Surgical History Prior Surgeries: INGRID CATARACT 10/2018. CABG X3 01/2017. RT RETINAL DETACHMENT. T&A. TURP 2011. BLADDER NECK CONTRACTURE ANE Review of Systems Review of Systems: - Exercise capacity METS (RN): 5 METS ANE Patient History - Allergies Allergies/Adverse Reactions: No Known Allergies Allergy (Unverified 02/26/17 12:08) - Home Medications Home Medications: Cholecalciferol Vit D3 [Vitamin D3 (*)] 2,000 units PO DAILY 02/26/17 [Last Taken 03/22/17] FLUoxetine [Prozac 20 MG (*)] 20 mg PO Q2D 02/26/17 [Last Taken 03/21/17] FLUoxetine [Prozac 20 MG (*)] 40 mg PO Q2D 02/26/17 [Last Taken 03/22/17] [place]-3 Fatty Acids [Fish Oil 1000 mg (*)] 1,000 mg PO BID 02/26/17 [Last Taken 03/22/17 21:00] Atorvastatin Calcium [Lipitor 40 mg (*)] 40 mg PO HS 12/22/18 [Last Taken Unknown] Finasteride HS 12/22/18 [Last Taken Unknown] Herbals/Supplements -Info Only DAILY 12/22/18 [Last Taken Unknown] Omeprazole DAILY 12/22/18 [Last Taken Unknown] Preservision Areds 2 Softgel BID 12/22/18 [Last Taken Unknown] - NPO status NPO Status: no food or drink >8 hours - Anes Hx Anes Hx: no prior problems - Smoking Hx Smoking Status: Never smoked - Alcohol Use Alcohol Use: Rarely ANE Labs/Vital Signs - Vital Signs Height: 167.64 cm Weight: 77.564 kg ANE Physical Exam - Airway Neck exam: FROM Mallampati Score: Class 2 Mouth exam: normal dental/mouth exam Mouth image: 1 - chipped - Pulmonary Pulmonary: no respiratory distress, clear to auscultation - Cardiovascular Cardiovascular: regular rate and rhythym, no murmur, rub, or gallop - ASA Status ASA Status: III ANE Anesthesia Plan Anesthesia Plan: GA w LMA
[2018-12-29] MEDS ORDERED: fentaNYL 100 MCG/2 ML INJ ONE ×2 (09:20→10:58)
[2018-12-29] MEDS ORDERED: PROPOFOL 200 MG/20 ML VIAL ONE ×2 (09:20→12:04)
[2018-12-29] MEDS ORDERED: LIDOCAINE 2% 100 MG/5 ML SYR ONE (09:20)
--- NOTE | 2018-12-29 09:38 | PDHPUP ---
History & Physical Update H&P update statement: This history and physical update is based on an assessment of the patient which was completed after admission or registration (within 24 hours), but prior to the surgery/procedure. H&P update: no change in patient's condition since H&P completed
[2018-12-29] MEDS ORDERED: DEXAMETHASONE 4 MG/ML VIAL ONE (10:22)
[2018-12-29] MEDS ORDERED: ONDANSETRON 4 MG/2 ML VIAL ONE (10:23)
[2018-12-29] MEDS ORDERED: ONDANSETRON 4 MG/2 ML VIAL IVP PRN ×2 (11:42→12:10)
[2018-12-29] MEDS ORDERED: HYDROCODONE/APAP 5/325 TAB PO PRN ×2 (11:42→12:10)
[2018-12-29] MEDS ORDERED: fentaNYL 100 MCG/2 ML INJ IVP PRN (11:42)
[2018-12-29] MEDS ORDERED: NALOXONE HCL 0.4 MG/ML INJ IVP PRN (11:42)
[2018-12-29] MEDS ORDERED: HYDROmorphONE/DILAUDID 1 MG/ML INJ IVP PRN (11:42)
[2018-12-29] MEDS ORDERED: oxyCODONE IR 5 MG TAB PO PRN (11:42)
[2018-12-29] MEDS ORDERED: ACETAMINOPHEN 500 MG TAB PO PRN (11:42)
--- NOTE | 2018-12-29 12:07 | POSTOPPROG ---
Post Op Note Date of Operation: 12/29/18 Surgeon: Neymar Lantigua (# ) Anesthesia: LMA Pre-op Diagnosis: BPH w/ obstruction Post-op Diagnosis: BPH w/ obstruction Procedure: TURP Findings: Extensive adenoma and postop prostatic fossa scarring Inf/Abcess present in the surg proc area at time of surgery?: No EBL: 50-100 (100 cc) Complications: None Specimen(s): Prostate
[2018-12-29] MEDS ORDERED: OPIUM/BELLADONNA ALKALO SUPP PR PRN (12:10)
[2018-12-29] MEDS ORDERED: PROMETHAZINE HCL 25 MG/ML INJ IVP PRN (12:10)
[2018-12-29] MEDS ORDERED: LIDOCAINE 2% JELLY 6 ML TOPICAL SYR TP PRN (12:10)
--- NOTE | 2018-12-29 12:12 | POSTANESTH ---
Post Anesthetic Evaluation Cardiovascular Status: Normal, Stable, Similar to Pre-Op Cond Respiratory Status: Normal, Stable, Similar to Pre-op Cond. Level of Consciousness/Mental Status: Can Participate in Eval Pain Control: Adequate, Prn Tx Ordered Nausea/Vomiting Control: Adequate, Prn Tx Ordered Complications Possibly Related to Anesthesia: None Noted
[2018-12-29] MEDS ORDERED: MEPERIDINE 25 MG/0.5 ML AMP ONE (12:22)
[2018-12-29] MEDS ORDERED: MEPERIDINE 25 MG/0.5 ML AMP IVP PRN (12:27)
--- NOTE | 2018-12-29 13:23 | GOP ---
[f rep st] OPERATIVE REPORT DATE OF OPERATION: 12/29/2018 SURGEON: Neymar Lantigua MD ANESTHESIA: Laryngeal mask. PREOPERATIVE DIAGNOSIS: Benign prostatic hypertrophy with obstruction. POSTOPERATIVE DIAGNOSIS: Benign prostatic hypertrophy with obstruction. PROCEDURE PERFORMED: Transurethral resection of prostate. FINDINGS: Significant circumferential BPH with postoperative prostatic urethral scarring from prior surgery, as detailed in the operative report. SPECIMENS: Prostate tissue. ESTIMATED BLOOD LOSS: Less than 100 cc. INDICATIONS: This gentleman presented with obstructive urinary symptoms and underwent evaluation. He was noted to have significant BPH with obstruction, as well as postoperative scarring from prior transurethral prostate resection several years ago. He has opted to undergo intraoperative management. The indications for the procedures, as well as potential risks and complications, were discussed with the patient preoperatively. He appeared to understand. His questions were answered, and he wished to proceed. Written informed surgical consent was thereafter obtained. DESCRIPTION OF PROCEDURE: The patient was brought to the operating room and administered laryngeal mask anesthesia. He was carefully placed in the dorsal lithotomy position on the cystoscopic table. Genital area was sterilely prepped with Betadine scrub and paint and then draped in the usual sterile fashion. The 28-Bengali resectoscopic sheath with a visual obturator and a 30-degree lens were then inserted into the urethra. Anterior urethra was unremarkable. Posterior urethra revealed significant circumferential BPH and secondary obstruction. There was also lateral scar banding near the verumontanum between the lateral lobes of adenoma. There was a short posterior false passage at the 6 o'clock position that was also present as a result of postoperative scarring. The prostatic urethral lumen was somewhat tortuous as result of this scarring. I was ultimately able to advance the scope into the bladder. The patient had significant adenoma along the lateral and anterior lobes that extended into the bladder. The adenoma along the floor of the prostate extended directly onto the trigone and stopped just short of the ureteral orifices. The bladder was moderately to heavily trabeculated. Ureteral orifices were normal in regards to shape and position along the trigone. Complete cystoscopy was not performed here today, as it had been previously performed in the office. The Demeure resectoscope with a standard resecting loop was then inserted. Using normal saline continuous flow, I then systematically resected the prostate starting with the intravesical portion of the median lobe and floor of the prostate. I then resected carefully back to the level of the verumontanum. It should also be mentioned that the lateral lobe adenoma did appear to extend bilaterally distal to the verumontanum. However, no resection was performed distal to the verumontanum in order to minimize risk of postoperative incontinence. I resected circumferentially until prostate capsular fibers were approximated. I removed as much adenoma as possible. There was an extensive amount of circumferential adenoma present. I used a button electrode periodically to assist with hemostasis throughout the operative procedure. All the prostate tissue was evacuated from the bladder using an Fuzz evacuator and submitted to Pathology for histologic examination. At the conclusion of the procedure, the prostatic fossa was widely patent, ureteral orifices were preserved, and no resection had taken place distal to the verumontanum. The instruments were removed and a 22-Bengali 3-way Srivastava catheter inserted with the use of a catheter guide. 45 cc of sterile water was placed in the balloon. The catheter was then irrigated, and the return was somewhat bloody. As a result, I placed the catheter on traction with a 4 x 4 gauze that was placed around the catheter and cinched against the penile glans. Urine then lightened up somewhat, but continued to irrigate easily in a manual fashion. The catheter was then connected to bag drainage. Continuous irrigation was maintained postoperatively. The patient was awakened, transferred to his bed, then taken to the recovery room. He tolerated the procedure well overall. COMPLICATIONS: None. DISPOSITION: He was transferred to the recovery room in stable condition and will be admitted overnight for continuous irrigation. Copy requested to: Gustavo Garcia /[id number]/MODL MTDD
[2018-12-29] MEDS: D5W 1/2 NS 1,000 ML IV SCH (15:34)
[2018-12-29] MEDS: ATORVASTATIN CALCIUM 40 MG TAB PO SCH (19:58)
[2018-12-30] MEDS: D5W 1/2 NS 1,000 ML IV SCH (04:07)
[2018-12-30] MEDS: ACETAMINOPHEN 325 MG TAB PO PRN ×2 (09:51→17:57)
[2018-12-30] MEDS ORDERED: NS 1,000 ML IV ONE (12:00)
--- NOTE | 2018-12-30 13:47 | SOAPPROG ---
SOAP Progress Note Assessment/Plan: Assessment: 1. POD 1 s/p TURP - urine is clearing nicely. 2. Postop fevers and hypotension -- concerning for infection. CXR's negative, urine culture pending. Responded positively to fluid bolus. Rocephin also given again this AM. Plan: 1. Continue IVF's for now. Follow-up on culture results. 2. Hospitalist consult. 3. Since he will not be discharged today, will continue CBI until tomorrow AM the stop it & hopefully remove catheter as well. 4. Hold discharge in light of fevers and hypotension. 5. Recheck labwork in AM. Subjective: Feels better after fluid bolus. Became near-syncopal with attempted ambulation earlier. Denies pain. Objective: Vital Signs Temp Pulse Resp BP Pulse Ox 37.2 C 74 18 94/51 L 95 12/30/18 12:53 12/30/18 12:53 12/30/18 12:53 12/30/18 12:53 12/30/18 12:53 Laboratory Results 12/30/18 04:30 12/30/18 04:30 12/29/18 12/30/18 12/31/18 05:59 05:59 05:59 Intake Total 3674 Output Total 5450 Balance -1776 Physical Exam - Physical Exam General Appearance: WD/WN, alert, no apparent distress Abdomen: non-tender, soft Male Genitalia: other (urine clear on low-rate CBI) Skin: normal color, warm/dry Neuro/Psych: alert, normal mood/affect, oriented x 3 ICD10 Worksheet Patient Problems: Problems Problem Status Onset Acute blood loss anemia Acute CAD in [place] artery Acute Chronic Disease [facility]/Transitional Care Acute S/P CABG x 3 Acute ~03/01/17 Urinary tract infection Acute
--- NOTE | 2018-12-30 13:49 | SOAPPROG ---
SOAP Progress Note Assessment/Plan: Assessment: Post op turp UTI, suspected Plan: Continue with CBI, antibiotics. Dr Lantigua to also see patients. 12/30/18 13:48 Subjective: Feels fatigued. Objective: Vital Signs Temp Pulse Resp BP Pulse Ox 37.2 C 74 18 94/51 L 95 12/30/18 12:53 12/30/18 12:53 12/30/18 12:53 12/30/18 12:53 12/30/18 12:53 Laboratory Results 12/30/18 04:30 12/30/18 04:30 12/29/18 12/30/18 12/31/18 05:59 05:59 05:59 Intake Total 3674 Output Total 5450 Balance -1776 Physical Exam - Physical Exam General Appearance: alert, no apparent distress Respiratory: normal breath sounds, No respiratory distress Cardiac/Chest: regular rate, rhythm Male Genitalia: other (lightly blood in the spencer) ICD10 Worksheet Patient Problems: Problems Problem Status Onset Acute blood loss anemia Acute CAD in [place] artery Acute Chronic Disease Mgmt/Transitional Care Acute S/P CABG x 3 Acute ~03/01/17 Urinary tract infection Acute
[2018-12-30] MEDS ORDERED: NS 500 ML IV ONE ×2 (14:36→16:09)
[2018-12-30] MEDS ORDERED: NS 1,000 ML IV SCH (14:45)
--- NOTE | 2018-12-30 15:25 | PDCONSULT ---
Management Accounts Manager Note: 73 year old male with past medical history of BPH requiring TURP in 2010 along with a CABG done here in 2017 admitted for an elective TURP. Patient did well postoperatively however he states that starting last night he developed a fever and chills and was noted to be hypotensive today. He relates that during his previous TURP he developed urosepsis postoperatively requiring hospitalization. He denies any abdominal pain, chest pain, cough, shortness of breath and aside from some mild dysuria and fevers, chills and rigors he is asymptomatic. He was given a dose of Rocephin and urine cultures and blood cultures were ordered along with some fluids. His blood pressure is low normal but he says that he always has low blood pressure and takes nothing for this at home. Past medical history BPH Coronary artery disease status post CABG in 2017 Anxiety/depression Surgical history TURP in 2010 CABG in 2017 done here Social history Denied alcohol tobacco or drugs Family history Family history coronary artery disease Allergies no known drug allergies Review of systems Ten point review of systems negative except as per HPI Examination Vitals blood pressure is 99/54 heart rate 75 oxygenation 92% on room air breathing 16 times a minute with a temperature 37.2 degrees C Generally this is a well-developed well-nourished male in no acute distress HEENT PERRLA mucous membranes are moist pink and acyanotic head is atraumatic normocephalic Lungs are clear to auscultation bilaterally Cardiovascular regular rhythm and rate no murmurs rubs or gallops Abdomen is soft nontender nondistended in all 4 quadrants with no organomegaly no CVA tenderness Srivastava in place with hematuria noted Extremities are no clubbing cyanosis edema or calf pain Neuro cranial nerves 2-12 are grossly intact no focal neurologic deficits Skin no lesions rashes or ecchymosis MSK-full strength throughout normal range of motion no effusions Lymph no lymphedema Assessment plan 73-year-old male with BPH and CAD status post CABG admitted for TURP Sepsis-likely urosepsis in the setting of TURP. Met criteria with leukocytosis and fever. Hypotensive currently. -urinalysis -urine culture -blood culture -Rocephin 1 g Q 24 -check lactate -will bolus with half a L of saline now -if lactate elevated will cycle until below two BPH-status post TURP. Management per Urology was on finasteride but unsure if he will need this in the future Coronary artery disease- status post CABG here by Dr. Sheth. On aspirin and Lipitor. Continue holding aspirin until okayed by Urology but would continue statin Anxiety/depression- on Prozac which should be fine to continue GERD-continue PPI Prophylaxis- SCDs but would hold on heparin given hematuria unless cleared by Urology Fluids-normal saline at 100 Electrolytes-within normal limits Nutrition-regular Cor-full Dispo-would change to inpatient given he will need 2 midnights to ensure stability and clear medically
--- NOTE | 2018-12-30 16:18 | ASMTCMCOM ---
CM Note CM Note Notes: Chart reviewed for discharge planning. Pt admitted with BPH and urinary obstruction. Developed Fever and chills last night with Hypotension. PMH: Reflux, Hiatal hernia, Depression, Cateracts-detached retina, TURP 2011, CABG 2016. CM available for needs. PLAN: PT will likely discharge home independently when medically cleared. Date Signed: 12/30/2018 04:17 PM Electronically Signed By:Jessica [email or web address],PLANNING CONSULTANT
[2018-12-30] MEDS ORDERED: FLUoxetine 20 MG CAP PO SCH (20:15)
[2018-12-30] MEDS: PRESERVISION AREDS2 FORMULA EYE VIT 1 EACH PO SCH (21:52)
[2018-12-30] MEDS: ATORVASTATIN CALCIUM 40 MG TAB PO SCH (21:53)
[2018-12-31 05:14] LABS: PLATELET COUNT 80 10^3/uL (150-400)
[2018-12-31] MEDS ORDERED: PANTOPRAZOLE SODIUM 40 MG TAB PO SCH (06:00)
[2018-12-31] MEDS ORDERED: FLUoxetine 20 MG CAP PO SCH (09:00)
[2018-12-31] MEDS: PRESERVISION AREDS2 FORMULA EYE VIT 1 EACH PO SCH (10:06)
--- NOTE | 2018-12-31 12:40 | SOAPPROG ---
SOAP Progress Note Assessment/Plan: Assessment: look good, no void yet, abd NT, ext NT, path discussed Plan: Home p void. No Rx needed, and see Angus in 3 weeks 12/31/18 12:40 Objective: Vital Signs Temp Pulse Resp BP Pulse Ox 36.9 C 78 16 112/63 90 L 12/31/18 07:39 12/31/18 07:39 12/31/18 07:39 12/31/18 07:39 12/31/18 07:39 Laboratory Results 12/31/18 04:42 12/31/18 04:42 12/30/18 12/31/18 01/01/19 05:59 05:59 05:59 Intake Total 3674 5259 Output Total 5437 8805 Balance -1776 2644 Physical Exam - Physical Exam General Appearance: no apparent distress Neck: full range of motion Respiratory: No respiratory distress Cardiac/Chest: No edema Abdomen: non-tender, soft Skin: normal color Extremities: non-tender Neuro/Psych: alert, oriented x 3 ICD10 Worksheet Patient Problems: Problems Problem Status Onset Acute blood loss anemia Acute CAD in [place] artery Acute Chronic Disease Mgmt/Transitional Care Acute S/P CABG x 3 Acute ~03/01/17 Urinary tract infection Acute
--- NOTE | 2018-12-31 13:19 | ASMTCMCOM ---
CM Note CM Note Notes: Met with Pt who will discharge home with his today and once he is able to void. No needs identified. CM available for needs. PLAN: Home with . Date Signed: 12/31/2018 01:18 PM Electronically Signed By:Jessica Uribe.RN,TAX ATTORNEY
--- NOTE | 2018-12-31 13:20 | ASMTLACE ---
LANAE Length of stay for Answers: 2 days current admission Acuity / Level of Answers: Yes Care: Did the patient have an inpatient admission? Comorbidities - select Answers: Coronary Artery Disease all that apply # of Emergency department Answers: 0 visits in the last 6 months Social determinants Answers: Mental health diagnosis (anxiety, depression, pers onality disorders, etc.) Score: 10 Date Signed: 12/31/2018 01:19 PM Electronically Signed By:Jessica Uribe.RN,UPSETTER
--- NOTE | 2018-12-31 14:03 | HOSPPROG ---
Hospitalist Progress Note Assessment/Plan: Sepsis-likely urosepsis in the setting of TURP. Met criteria with leukocytosis and fever. Hypotensive currently. -urinalysis -urine culture -blood culture -change to cipro 500 bid X 7 days. -lactate normal -will bolus with half a L of saline now -if lactate elevated will cycle until below two BPH-status post TURP. Management per Urology was on finasteride but unsure if he will need this in the future Coronary artery disease- status post CABG here by Dr. Sheth. On aspirin and Lipitor. Continue holding aspirin until okayed by Urology but would continue statin Anxiety/depression- on Prozac which should be fine to continue GERD-continue PPI Prophylaxis- SCDs but would hold on heparin given hematuria unless cleared by Urology Fluids-normal saline at 100 Electrolytes-within normal limits Nutrition-regular Cor-full Dispo-looks much better, fine to dc from my standpoint, dc per urology Subjective: feeling much better today. Objective: Vital Signs Temp Pulse Resp BP Pulse Ox 37.4 C 70 16 129/72 H 94 12/31/18 12:00 12/31/18 12:00 12/31/18 12:00 12/31/18 12:00 12/31/18 12:00 Laboratory Results 12/31/18 04:42 12/31/18 04:42 12/30/18 12/31/18 01/01/19 05:59 05:59 05:59 Intake Total 3674 5249 Output Total 5450 2775 125 Balance -1776 2474 -125 - Physical Exam Constitutional: no apparent distress, appears nourished, not in pain Eyes: PERRL, anicteric sclera, EOMI Ears, Nose, Mouth, Throat: moist mucous membranes, hearing normal, ears appear normal, no oral mucosal ulcers Cardiovascular: regular rate and rhythym, no murmur, rub, or gallop Respiratory: no respiratory distress, no rales or rhonchi, clear to auscultation Gastrointestinal: normoactive bowel sounds, soft, non-tender abdomen, no palpable masses Genitourinary: no bladder fullness, no bladder tenderness, no renal bruits, spencer in urethra Skin: no rashes or abrasions, no fluctuance, no induration Musculoskeletal: full muscle strength, no muscle tenderness, normal joint ROM Neurologic: AAOx3, sensation intact bilaterally Psychiatric: interacting appropriately, not anxious, not encephalopathic, thought process linear Lymph, Heme, Immunologic: no cervical LAD, no supraclavicular LAD ICD10 Worksheet Patient Problems: Problems Problem Status Onset Acute blood loss anemia Acute CAD in [place] artery Acute Chronic Disease Mgmt/Transitional Care Acute S/P CABG x 3 Acute ~03/01/17 Urinary tract infection Acute
[2018-12-31 15:43] VITALS: BP 122/68
--- NOTE | 2018-12-31 17:01 | PDMN ---
Medical Necessity [place] [facility] [place] [place], Transurethral Resection (TURP), A- 1day: 73 yo s/p TURP. Initially OBS but pt w/ post op complications - fevers and hypotension concerning for infection, urine cx pending, IV antbx to cont, cont IVF, hospitalist consult, cont CBI, recheck labs. Admit IP status as pt requires additional MN for post op TURP complications. Change to IP status 12/30@1603 per MD order.
[2018-12-31] MEDS ORDERED: CIPROFLOXACIN 500 MG TAB PO SCH (20:00)
== END 2018-12-31 17:47 | disposition home or self-care (01) | DRG 857 ==
LOC: F1N 08:36 → INTOOBSV 08:36 → F1N 13:24 → OBSVTOIN 12-30 16:03
PROVIDERS: ADMIT Specialist; ATTEND Specialist
PROC: 0VT04ZZ Resection of Prostate, Percutaneous Endoscopic Approach (ICD-10-PCS; principal; 2018-12-29 09:45)
DX: T81.44XA Sepsis following a procedure, initial encounter (principal); N40.1 Benign prostatic hyperplasia with lower urinary tract symptoms; N13.8 Other obstructive and reflux uropathy; I25.10 Atherosclerotic heart disease of native coronary artery without angina pectoris; F32.9 Major depressive disorder, single episode, unspecified; F41.9 Anxiety disorder, unspecified; K21.9 Gastro-esophageal reflux disease without esophagitis; Z95.1 Presence of aortocoronary bypass graft
CPT/HCPCS: J0696; J1100; J2001; J2175; J2405; J2704; J3010